=== PATIENT | female | born 1950 | race Caucasian/White ===

== ENCOUNTER → 2018-04-25 10:24 | Outpatient (CLI) | payer OTHER, SELFPAY ==
--- NOTE | 2018-04-25 | DI.MG.S_ITS ---
BILATERAL DIGITAL SCREENING MAMMOGRAM 3D/2D WITH CAD: 04/25/2018 CLINICAL: Routine screening. Comparison is made to exams dated: 06/07/2016 mammogram, 06/03/2015 mammogram, and 06/02/2014 mammogram - [facility]. There are scattered fibroglandular elements in both breasts. Current study was also evaluated with a Computer Aided Detection (CAD) system. There is an asymmetry in the left breast sub-areolar depth medial region seen on the craniocaudal view only. No other significant masses, calcifications, or other findings are seen in either breast. IMPRESSION: INCOMPLETE: NEEDS ADDITIONAL IMAGING EVALUATION The asymmetry in the left breast is indeterminate. Additional views with possible ultrasound are recommended. This exam was interpreted at Station ID: [id number]. NOTE: For mammograms, a report in lay terms will be sent to the patient. Approximately 15% of breast malignancies will not be visualized mammographically. In the management of a palpable breast mass, a negative mammogram must not discourage biopsy of a clinically suspicious lesion. Electronically Signed By: Tony sterling/eve:04/25/2018 13:44:50 letter sent: Additional Imaging Needed ACR BI-RADS Category 0: Incomplete [id number]
== END ==
PROVIDERS: Family Provider Internal Medicine; PCP Family Medicine; Visit Provider Family Medicine
DX: Z12.31 Encounter for screening mammogram for malignant neoplasm of breast (principal); R92.8 Other abnormal and inconclusive findings on diagnostic imaging of breast
CPT/HCPCS: 77063; 77067

== ENCOUNTER → 2018-05-09 13:38 | Outpatient (CLI) | payer OTHER, SELFPAY ==
--- NOTE | 2018-05-09 13:45 | DI.MG.S_ITS ---
UNILATERAL LEFT DIGITAL DIAGNOSTIC MAMMOGRAM 3D/2D WITH ADDITIONAL VIEWS: 05/09/2018 CLINICAL: Additional evaluation requested from prior study. Comparison is made to exams dated: 04/25/2018 mammogram, 06/07/2016 mammogram, and 06/03/2015 mammogram - [facility]. There are scattered fibroglandular elements in the left breast. Prior mammographic finding is no longer seen in the left breast. No significant masses, calcifications, or other findings are seen in the breast. IMPRESSION: NEGATIVE There is no mammographic evidence of malignancy. A 1 year screening mammogram is recommended. This exam was interpreted at Station ID: [id number]. NOTE: For mammograms, a report in lay terms will be sent to the patient. Approximately 15% of breast malignancies will not be visualized mammographically. In the management of a palpable breast mass, a negative mammogram must not discourage biopsy of a clinically suspicious lesion. Electronically Signed By: Tony sterling/eve:05/09/2018 16:31:15 letter sent: Normal Exam ACR BI-RADS Category 1: Negative [id number]
== END ==
PROVIDERS: PCP Family Medicine; Visit Provider Family Medicine
DX: R92.8 Other abnormal and inconclusive findings on diagnostic imaging of breast (principal)
CPT/HCPCS: 77065; G0279

== ENCOUNTER 2018-08-22 16:00 | Outpatient (RCR) | payer OTHER, SELFPAY ==
--- NOTE | 2018-05-12 13:02 | PT.OIE ---
Current Diagnoses Muscle weakness (generalized) (05/11/18) Lateral epicondylitis, left elbow (05/11/18) Pain in left forearm (05/11/18) Abnormal posture (05/11/18) Past Surgical History History of tonsillectomy Status post hysterectomy Provider Visit Care Team Role Provider Type Sweta Torrez DO Attending Provider Physician Primary Care Provider Specialty: [facility] Address: [address] [place] [address], [facility] Email: [email or web address] Physical Therapy Initial Evaluation PT-OP-A Visit Information Start: 05/11/18 17:08 Freq: Status: Active Protocol: Document 05/11/18 14:30 RCC (Rec: 05/12/18 12:36 RCC [email or web address]) Out-Patient Physical Therapy Visit Information Visit Information Visit Type Initial Evaluation Visit Note At end of session, pt also presented a referral from SHILA Moore for L foot pain and R knee pain which was unable to be assessed this visit due to time constraints. Visit Start Time 13:45 Visit Stop Time 14:30 Total Visit Minutes 45 Visit Number 1/15 (G-codes due @ 10th visit ) Number of BRANCH SERVICE REPRESENTATIVE Visits 0 Evaluation Information Evaluation Date 05/11/18 PT-OP-B Current Condition Start: 05/11/18 17:08 Freq: Status: Active Protocol: Document 05/11/18 14:30 RCC (Rec: 05/12/18 12:36 RCC [email or web address]) Current Condition History of Current Condition Onset Date 06/2017 Current Complaints L lateral elbow/forearm pain History of Current Condition Pt is a 67 y/o female presenting to physical therapy with a c/o L lateral elbow and forearm pain. Initial injury noticed after moving into a new home in the [facility] in June of 2017. Pt reports pain has worsened since then, although has reached a point where she thinks it may start getting better. She also c/o bilateral neck and upper back pain, L>R . Aggravating factors include: lifting (i.e. likes to garden and difficulty lifting her planters). Pt has not found any relieving activities or positions besides not using it. She feels weakness in the L arm and hand. Occasional tingling on the R hand with doing her hair, but no c/o numbness tingling on the affected L hand side. Pt also c/o L anteromedial foot pain which initially was swollen 2 mo ago but now swelling is down and feeling a little better. She also has a R knee that is painful and hurts going down stairs first thing in the morning, but then gets better. No pain going up stairs. No imaging for any of these injuries has been done. She is R hand dominant. Treatment Goals Patient/Caregiver Goals Decrease pain, improve lifting tolerance. Prior Functional Status Baseline Function- ADL's Independent Baseline Function- Mobility Independent Baseline Function- Gait indep. community ambulator Baseline Function- Recreation/Hobbies Indep. gardening and lifting without pain in L forearm/ elbow. Current Functional Impairments (Reported) Functional Limitations- Recreation/ Unable to lift planters and Hobbies work in garden d/t pain. Personal Factors Other Personal Factors That May Effect h/o of bulging disc in lumbar Therapy/Recovery spine per pt- body mechanics with lifting when L arm able to do so. ROMAN and neck pain limiting her physical activity levels. PT-OP-C Subjective Start: 05/11/18 17:08 Freq: Status: Active Protocol: Document 05/11/18 14:30 RCC (Rec: 05/12/18 12:36 [facility] [email or web address]) OP-PT Subjective Patient Comments Patient Comments Pt notes that the L forearm pain is the most function limiting factor as of now vs. R knee and L foot pain. Patient Questionnaires Quick Dash- Upper Extremity Quick Dash UE Score 40.91 Quick Dash UE Impairment 40 to 59% Impaired (Score 40- 59) OP-PT Pain Assessment Pain Assessment Grid Paper Pain Assessment Grid Completed Yes Location Bilateral Neck Intensity 3 Scale Used Numeric (1 - 10) Description Aching Tightness Frequency Frequent Left Elbow Intensity 4 Scale Used Numeric (1 - 10) Description Aching Stabbing Frequency Intermittent Radiating Location down forearm L Pain Aggravating Factors Activity Lifting Pain Alleviating Factors Inactivity PT-OP-F Manual Assessment Start: 05/11/18 17:08 Freq: Status: Active Protocol: Document 05/11/18 14:30 RCC (Rec: 05/12/18 12:44 RCC [email or web address]) Manual Assessments Soft Tissue Assessment Soft Tissue Mobility Assessment Tenderness to palpation: L extensor carpi radialis brevis , common forearm extensor proximal attachment, bilateral levator scapula and upper trapezius. PT-OP-H Neuro Start: 05/11/18 17:08 Freq: Status: Active Protocol: Document 05/11/18 14:30 RCC (Rec: 05/12/18 12:44 RCC [email or web address]) Sensation Evaluation Gross Sensation Gross Sensation WNL Comments Summary Comments possible R median nerve involvment with occasional R digits 1-3 numbness/tingling. Deep Tendon Reflex & Clonus Assessment Deep Tendon Reflex Brachioradialis Deep Tendon Reflex 2+ Normal Bilateral Tricep Deep Tendon Reflex 2+ Normal Bilateral Bicep Deep Tendon Reflex 2+ Normal PT-OP-J Posture/Palpation/Skin Start: 05/11/18 17:08 Freq: Status: Active Protocol: Document 05/11/18 14:30 RCC (Rec: 05/12/18 12:44 RCC [email or web address]) Posture Evaluation Position Sitting Head/C-Spine Posture Forward Head T-Spine Posture Increased Kyphosis Comments Posture Comments elevated shoulders bilaterally . PT-OP-K Range of Motion Start: 05/11/18 17:08 Freq: Status: Active Protocol: Document 05/11/18 14:30 RCC (Rec: 05/12/18 12:45 RCC [email or web address]) Cervical Spine Range of Motion Cervical Spine Active Degrees Testing Position Sitting Flexion 48 Extension 35 Rotation Left 50 Rotation Right 70 Lateral Flexion Left 24 Lateral Flexion Right 28 ROM Limitations Soft Tissue Tightness Comments tightness with SB L on the R cervical spine. PT-OP-L Special Tests Start: 05/11/18 17:08 Freq: Status: Active Protocol: Document 05/11/18 14:30 RCC (Rec: 05/12/18 12:44 RCC [email or web address]) Special Tests Cervical Spine Special Tests Spurling's Test Test Results negative bilaterally Elbow Special Tests Lateral Epicondylitis Extended Test Results positive L PT-OP-M Strength Start: 05/11/18 17:08 Freq: Status: Active Protocol: Document 05/11/18 14:30 RCC (Rec: 05/12/18 12:44 RCC [email or web address]) Shoulder Strength Shoulder Manual Muscle Testing Right Flexion 5 Normal Abduction (C5) 5 Normal External Rotation 5 Normal Internal Rotation 5 Normal Left Flexion 4 Good Abduction (C5) 4 Good External Rotation 4+ Good+ Internal Rotation 4+ Good+ Elbow/Forearm Strength Elbow and Forearm Manual Muscle Testing Right Flexion (C6) 5 Normal Extension (C7) 5 Normal Left Flexion (C6) 4+ Good+ Extension (C7) 4+ Good+ Hand Slasher Tender/Pinch Strength Hand Dominance Hand Dominance Right Hand Strength Left Comments Slasher Tender: elbow flex 90 deg & arm @ side- L 43 lbs, R 52 lbs Slasher Tender: elbow extended & shoulder @ 90 deg- L 18 lbs, R 53 lbs PT-OP-Q Treatments Start: 05/11/18 17:08 Freq: Status: Active Protocol: Document 05/11/18 14:30 RCC (Rec: 05/12/18 13:00 [facility] [email or web address]) Therapeutic Exercises Sitting Exercises 2 Sitting Exercise Name wrist extensor stretch Side left Reps/Minutes 2 x 30 sec hold 1 Sitting Exercise Name wrist flex/ext AROM Side left Reps/Minutes 1 x 10 Manual Therapy Treatment Soft Tissue Mobilization 2 Body Location Levator scapula Mobilization Type Sustained Pressure Intensity/Depth Superficial Body Position Sitting Comments bilateral 1 Body Location ECRB, wrist extensors, common extensor proximal attachment Mobilization Type Strumming Intensity/Depth Superficial Body Position Sitting Comments Left UE PT-OP-T Assessment and Plan Start: 05/11/18 17:08 Freq: Status: Active Protocol: Document 05/11/18 14:30 [facility] (Rec: 05/12/18 13:00 [facility] [email or web address]) Physical Therapy Assessment Rehab Potential Rehabilitation Potential Good Evaluation Complexity Number of Personal Factors/Comorbidities 3 or More Number of Body Systems Impaired 4 or More Clinical Presentation at Evaluation Evolving Impairments Impairments Activity Tolerance Functional Activities Pain Posture ROM Soft Tissue Mobility Strength Goals Four Impairment Unable to garden, lift planters without increased pain and weakness Short Term Goal (STG) Pt able to lift small planters with 2/10 or less pain in L elbow. STG Duration 4 weeks Mcfp Goal (LTG) Pt able to lift planters to her prior level of ability and 1/10 pain or less in L elbow LTG Duration 8 weeks Three Impairment QuickDASH disability score Short Term Goal (STG) <40 disability score on QuickDASH STG Duration 4 weeks Accounts Payable Coordinator Goal (LTG) 25 or less on disability score on QuickDASH LTG Duration 8 weeks Two Impairment LUE weakness Short Term Goal (STG) 4+/5 or greater L shoulder flexion, abduction, IR, ER MMT . STG Duration 4 weeks Accounts Payable Coordinator Goal (LTG) 5/5 L shoulder and elbow MMT. LTG Duration 8 weeks One Impairment Pain- L elbow/forearm 4/10, neck 3/10 Short Term Goal (STG) Pain in L forearm/elbow t0 2/ 10 and bilateral neck to 2/10 STG Duration 4 weeks Accounts Payable Coordinator Goal (LTG) Pain in L forearm/elbow and bilateral neck to 1/10 or less LTG Duration 8 weeks Assessment Summary Assessment Pt presents with (+) signs and symptoms consistent with L lateral epicondylosis. Pt has poor posture with increased kyphosis and elevated shoulder and forward head bilaterally, likely causing her neck pain, but pain appears to not be referred to the L lateral elbow at this time from the cervical spine. Pt with L early childhood associate weakness compared to the R, with most significance when elbow is extended and shoulder is flexed to 90 degrees, likely due to pain from attempting to hold the dynamometer. Pt would greatly benefit from skilled physical therapy intervention to improve LUE strength, return to prior level of lifting and gardening, pain, and improve body mechanics and posture. Pt's L foot and R knee not assessed at this time , as referral is for L forearm pain only, time constraints, and the order for L foot pain and R knee pain from different practitioner. Physical Therapy Plan Frequency and Duration Frequency of Treatment 2x/Week Duration of Treatment 8 weeks Plan of Care Start Date 05/11/18 Plan of Care End Date 07/06/18 Therapeutic Interventions Therapeutic Interventions Aquatic Therapy Home Exercise Program Joint Mobilizations Manual Therapy Neuromuscular Re-education Self-Care/Home Management Sensory Integration Soft Tissue Mobilization Taping Therapeutic Activities Therapeutic Exercises Modalities Cold Pack/Ice Massage Electric Stimulation Hot Packs Iontophoresis Ultrasound Other Therapeutic Interventions Iontophoresis- dexamethasone 4 mg/mL Next Visit Focus/Plan Next Note Type Treatment Note Next Visit Plan Lateral glide of forearm with pt performing early childhood associate training while glide is being held ( grade III mobilization, sustained), ultrasound L lateral forearm, 1 lb resistance with wrist extension, STR lateral L forearm, continue stretching program. Please Sign and Return: I have reviewed this Plan of Care and certify that the skilled therapy services above are required to meet the patient?s needs. Physician Signature Date Printed Name and Credentials Clinical Instructor Signature Printed Name and Credentials
--- NOTE | 2018-05-15 18:02 | PT.OTN ---
Current Diagnoses Lateral epicondylitis, left elbow (05/15/18) Physical Therapy Treatment Note PT-OP-A Visit Information Start: 05/11/18 17:08 Freq: Status: Active Protocol: Document 05/15/18 16:45 GGD (Rec: 05/15/18 18:02 [facility] [email or web address]) Out-Patient Physical Therapy Visit Information Visit Information Visit Type Treatment Note Visit Start Time 16:45 Visit Stop Time 17:25 Total Visit Minutes 40 Visit Number 2/ (G-codes due @ 10th visit ) Number of AWNINGS MECHANIC Visits 1 Evaluation Information Evaluation Date 05/11/18 PT-OP-B Current Condition Start: 05/11/18 17:08 Freq: Status: Active Protocol: Document 05/11/18 14:30 RCC (Rec: 05/12/18 12:36 RCC [email or web address]) Current Condition History of Current Condition Onset Date 06/2017 Current Complaints L lateral elbow/forearm pain History of Current Condition Pt is a 67 y/o female presenting to physical therapy with a c/o L lateral elbow and forearm pain. Initial injury noticed after moving into a new home in the [facility] in June of 2017. Pt reports pain has worsened since then, although has reached a point where she thinks it may start getting better. She also c/o bilateral neck and upper back pain, L>R . Aggravating factors include: lifting (i.e. likes to garden and difficulty lifting her planters). Pt has not found any relieving activities or positions besides not using it. She feels weakness in the L arm and hand. Occasional tingling on the R hand with doing her hair, but no c/o numbness tingling on the affected L hand side. Pt also c/o L anteromedial foot pain which initially was swollen 2 mo ago but now swelling is down and feeling a little better. She also has a R knee that is painful and hurts going down stairs first thing in the morning, but then gets better. No pain going up stairs. No imaging for any of these injuries has been done. She is R hand dominant. Treatment Goals Patient/Caregiver Goals Decrease pain, improve lifting tolerance. Prior Functional Status Baseline Function- ADL's Independent Baseline Function- Mobility Independent Baseline Function- Gait indep. community ambulator Baseline Function- Recreation/Hobbies Indep. gardening and lifting without pain in L forearm/ elbow. Current Functional Impairments (Reported) Functional Limitations- Recreation/ Unable to lift planters and Hobbies work in garden d/t pain. Personal Factors Other Personal Factors That May Effect h/o of bulging disc in lumbar Therapy/Recovery spine per pt- body mechanics with lifting when L arm able to do so. ROMAN and neck pain limiting her physical activity levels. PT-OP-C Subjective Start: 05/11/18 17:08 Freq: Status: Active Protocol: Document 05/15/18 16:45 GGD (Rec: 05/15/18 18:02 [facility]GD [email or web address]) OP-PT Subjective Patient Comments Patient Comments Pt states she felt better after last visit PT-OP-F Manual Assessment Start: 05/11/18 17:08 Freq: Status: Active Protocol: Document 05/11/18 14:30 RCC (Rec: 05/12/18 12:44 RCC [email or web address]) Manual Assessments Soft Tissue Assessment Soft Tissue Mobility Assessment Tenderness to palpation: L extensor carpi radialis brevis , common forearm extensor proximal attachment, bilateral levator scapula and upper trapezius. PT-OP-H Neuro Start: 05/11/18 17:08 Freq: Status: Active Protocol: Document 05/11/18 14:30 RCC (Rec: 05/12/18 12:44 RCC [email or web address]) Sensation Evaluation Gross Sensation Gross Sensation WNL Comments Summary Comments possible R median nerve involvment with occasional R digits 1-3 numbness/tingling. Deep Tendon Reflex & Clonus Assessment Deep Tendon Reflex Brachioradialis Deep Tendon Reflex 2+ Normal Bilateral Tricep Deep Tendon Reflex 2+ Normal Bilateral Bicep Deep Tendon Reflex 2+ Normal PT-OP-J Posture/Palpation/Skin Start: 05/11/18 17:08 Freq: Status: Active Protocol: Document 05/11/18 14:30 RCC (Rec: 05/12/18 12:44 RCC [email or web address]) Posture Evaluation Position Sitting Head/C-Spine Posture Forward Head T-Spine Posture Increased Kyphosis Comments Posture Comments elevated shoulders bilaterally . PT-OP-K Range of Motion Start: 05/11/18 17:08 Freq: Status: Active Protocol: Document 05/11/18 14:30 RCC (Rec: 05/12/18 12:45 RCC [email or web address]) Cervical Spine Range of Motion Cervical Spine Active Degrees Testing Position Sitting Flexion 48 Extension 35 Rotation Left 50 Rotation Right 70 Lateral Flexion Left 24 Lateral Flexion Right 28 ROM Limitations Soft Tissue Tightness Comments tightness with SB L on the R cervical spine. PT-OP-L Special Tests Start: 05/11/18 17:08 Freq: Status: Active Protocol: Document 05/11/18 14:30 RCC (Rec: 05/12/18 12:44 RCC [email or web address]) Special Tests Cervical Spine Special Tests Spurling's Test Test Results negative bilaterally Elbow Special Tests Lateral Epicondylitis Extended Test Results positive L PT-OP-M Strength Start: 05/11/18 17:08 Freq: Status: Active Protocol: Document 05/11/18 14:30 RCC (Rec: 05/12/18 12:44 RCC [email or web address]) Shoulder Strength Shoulder Manual Muscle Testing Right Flexion 5 Normal Abduction (C5) 5 Normal External Rotation 5 Normal Internal Rotation 5 Normal Left Flexion 4 Good Abduction (C5) 4 Good External Rotation 4+ Good+ Internal Rotation 4+ Good+ Elbow/Forearm Strength Elbow and Forearm Manual Muscle Testing Right Flexion (C6) 5 Normal Extension (C7) 5 Normal Left Flexion (C6) 4+ Good+ Extension (C7) 4+ Good+ Hand Gluer/Pinch Strength Hand Dominance Hand Dominance Right Hand Strength Left Comments Gluer: elbow flex 90 deg & arm @ side- L 43 lbs, R 52 lbs Gluer: elbow extended & shoulder @ 90 deg- L 18 lbs, R 53 lbs PT-OP-Q Treatments Start: 05/11/18 17:08 Freq: Status: Active Protocol: Document 05/15/18 16:45 GGD (Rec: 05/15/18 18:02 GGD [email or web address]) Therapeutic Exercises Sitting Exercises 3 Sitting Exercise Name wrist extension Side left Resistance 1# Reps/Minutes 10 2 Sitting Exercise Name wrist extensor stretch Side left Reps/Minutes 2 x 30 sec hold 1 Sitting Exercise Name wrist flex/ext AROM Side left Reps/Minutes 1 x 10 Manual Therapy Treatment Soft Tissue Mobilization 1 Body Location ECRB, wrist extensors, common extensor proximal attachment Mobilization Type Strumming Intensity/Depth Superficial Body Position Sitting Comments Left UE Joint Mobilizations 1 Joint Lateral glide of forearm with manager technical training training. Grade II Body Position Sitting PT-OP-R Modalities Start: 05/11/18 17:08 Freq: Status: Active Protocol: Document 05/15/18 16:45 GGD (Rec: 05/15/18 18:02 [facility]GD [email or web address]) Ultrasound Therapy Treatment left lateral forearm Treatment Duration (minutes) 8 Patient Position Sitting Coupling Medium Ultrasound Gel Applicator Size (cm2) 5 Frequency Setting (mHz) 3 Mode Setting Pulsed Duty Cycle 50% Intensity Setting (w/cm2) 1.0 PT-OP-T Assessment and Plan Start: 05/11/18 17:08 Freq: Status: Active Protocol: Document 05/15/18 16:45 GGD (Rec: 05/15/18 18:02 GGD [email or web address]) Physical Therapy Assessment Assessment Summary Assessment Pt had decrease pain with treatment and improved tolerance to exercise. Physical Therapy Plan Frequency and Duration Frequency of Treatment 2x/Week Duration of Treatment 8 weeks Plan of Care Start Date 05/11/18 Plan of Care End Date 07/06/18 Next Visit Focus/Plan Next Note Type Treatment Note Next Visit Plan progress strengthening and HEP .
--- NOTE | 2018-07-20 16:40 | PT.OTN ---
Current Diagnoses Lateral epicondylitis, left elbow (07/20/18) Physical Therapy Treatment Note PT-OP-A Visit Information Start: 05/11/18 17:08 Freq: Status: Active Protocol: Document 07/20/18 16:40 RCC (Rec: 07/22/18 17:33 RCC [email or web address]) Out-Patient Physical Therapy Visit Information Visit Information Visit Type Treatment Note Visit Start Time 16:00 Visit Stop Time 16:40 Total Visit Minutes 40 Visit Number 3/15 (G-codes due @ 13th visit ) Number of CONTROL VALVE TECHNICIAN Visits 0 Evaluation Information Evaluation Date 05/11/18 PT-OP-B Current Condition Start: 05/11/18 17:08 Freq: Status: Active Protocol: Document 05/11/18 14:30 RCC (Rec: 05/12/18 12:36 RCC [email or web address]) Current Condition History of Current Condition Onset Date 06/2017 Current Complaints L lateral elbow/forearm pain History of Current Condition Pt is a 67 y/o female presenting to physical therapy with a c/o L lateral elbow and forearm pain. Initial injury noticed after moving into a new home in the [facility] in June of 2017. Pt reports pain has worsened since then, although has reached a point where she thinks it may start getting better. She also c/o bilateral neck and upper back pain, L>R . Aggravating factors include: lifting (i.e. likes to garden and difficulty lifting her planters). Pt has not found any relieving activities or positions besides not using it. She feels weakness in the L arm and hand. Occasional tingling on the R hand with doing her hair, but no c/o numbness tingling on the affected L hand side. Pt also c/o L anteromedial foot pain which initially was swollen 2 mo ago but now swelling is down and feeling a little better. She also has a R knee that is painful and hurts going down stairs first thing in the morning, but then gets better. No pain going up stairs. No imaging for any of these injuries has been done. She is R hand dominant. Treatment Goals Patient/Caregiver Goals Decrease pain, improve lifting tolerance. Prior Functional Status Baseline Function- ADL's Independent Baseline Function- Mobility Independent Baseline Function- Gait indep. community ambulator Baseline Function- Recreation/Hobbies Indep. gardening and lifting without pain in L forearm/ elbow. Current Functional Impairments (Reported) Functional Limitations- Recreation/ Unable to lift planters and Hobbies work in garden d/t pain. Personal Factors Other Personal Factors That May Effect h/o of bulging disc in lumbar Therapy/Recovery spine per pt- body mechanics with lifting when L arm able to do so. ROMAN and neck pain limiting her physical activity levels. PT-OP-C Subjective Start: 05/11/18 17:08 Freq: Status: Active Protocol: Document 07/20/18 16:40 RCC (Rec: 07/22/18 17:33 RCC [email or web address]) OP-PT Subjective Patient Comments Patient Comments Pt notes that the manual therapy and ultrasound are helping with decreasing pain, but still having difficulty with lifting, carrying, griping objects in the L hand. She is doing the stretching and ROM activities for her HEP . PT-OP-F Manual Assessment Start: 05/11/18 17:08 Freq: Status: Active Protocol: Document 07/20/18 16:40 RCC (Rec: 07/22/18 17:33 RCC [email or web address]) Manual Assessments Soft Tissue Assessment Soft Tissue Mobility Assessment Tenderness to palpation: L extensor carpi radialis brevis , common forearm extensor proximal attachment. PT-OP-H Neuro Start: 05/11/18 17:08 Freq: Status: Active Protocol: Document 05/11/18 14:30 RCC (Rec: 05/12/18 12:44 RCC [email or web address]) Sensation Evaluation Gross Sensation Gross Sensation WNL Comments Summary Comments possible R median nerve involvment with occasional R digits 1-3 numbness/tingling. Deep Tendon Reflex & Clonus Assessment Deep Tendon Reflex Brachioradialis Deep Tendon Reflex 2+ Normal Bilateral Tricep Deep Tendon Reflex 2+ Normal Bilateral Bicep Deep Tendon Reflex 2+ Normal PT-OP-J Posture/Palpation/Skin Start: 05/11/18 17:08 Freq: Status: Active Protocol: Document 05/11/18 14:30 RCC (Rec: 05/12/18 12:44 RCC [email or web address]) Posture Evaluation Position Sitting Head/C-Spine Posture Forward Head T-Spine Posture Increased Kyphosis Comments Posture Comments elevated shoulders bilaterally . PT-OP-K Range of Motion Start: 05/11/18 17:08 Freq: Status: Active Protocol: Document 05/11/18 14:30 RCC (Rec: 05/12/18 12:45 RCC [email or web address]) Cervical Spine Range of Motion Cervical Spine Active Degrees Testing Position Sitting Flexion 48 Extension 35 Rotation Left 50 Rotation Right 70 Lateral Flexion Left 24 Lateral Flexion Right 28 ROM Limitations Soft Tissue Tightness Comments tightness with SB L on the R cervical spine. PT-OP-L Special Tests Start: 05/11/18 17:08 Freq: Status: Active Protocol: Document 07/20/18 16:40 RCC (Rec: 07/22/18 17:33 RCC [email or web address]) Special Tests Elbow Special Tests Lateral Epicondylitis Extended Test Results positive L PT-OP-M Strength Start: 05/11/18 17:08 Freq: Status: Active Protocol: Document 07/20/18 16:40 RCC (Rec: 07/22/18 17:33 RCC [email or web address]) Elbow/Forearm Strength Elbow and Forearm Manual Muscle Testing Left Flexion (C6) 4+ Good+ Extension (C7) 4+ Good+ PT-OP-Q Treatments Start: 05/11/18 17:08 Freq: Status: Active Protocol: Document 07/20/18 16:40 RCC (Rec: 07/22/18 17:33 RCC [email or web address]) Therapeutic Exercises Sitting Exercises 4 Sitting Exercise Name pronation/supination, wrist flexion/extension Side bilateral Equipment Used Red Theraband flexbar Reps/Minutes 10 each 2 Sitting Exercise Name wrist extensor stretch Side left Reps/Minutes 2 x 30 sec hold 1 Sitting Exercise Name wrist flex/ext AROM Side left Reps/Minutes 1 x 10 Manual Therapy Treatment Soft Tissue Mobilization 1 Body Location ECRB, wrist extensors, common extensor proximal attachment Mobilization Type Strumming Intensity/Depth Superficial Body Position Sitting Comments Left UE Joint Mobilizations 1 Joint Lateral glide of forearm with national park tour guide training. Grade IV Body Position Sitting Comments 10 reps Other Other Manual Treatments self STR with tennis ball on forearm musculature. PT-OP-R Modalities Start: 05/11/18 17:08 Freq: Status: Active Protocol: Document 07/20/18 16:40 RCC (Rec: 07/22/18 17:33 RCC [email or web address]) Ultrasound Therapy Treatment left lateral forearm Treatment Duration (minutes) 8 Patient Position Sitting Coupling Medium Ultrasound Gel Applicator Size (cm2) 5 Frequency Setting (mHz) 3 Mode Setting Pulsed Duty Cycle 50% Intensity Setting (w/cm2) 1.0 PT-OP-T Assessment and Plan Start: 05/11/18 17:08 Freq: Status: Active Protocol: Document 07/20/18 16:40 RCC (Rec: 07/22/18 17:33 RCC [email or web address]) Physical Therapy Assessment Goals Four Impairment Unable to garden, lift planters without increased pain and weakness Short Term Goal (STG) Pt able to lift small planters with 2/10 or less pain in L elbow. STG Duration 4 weeks Penitentiary Goal (LTG) Pt able to lift planters to her prior level of ability and 1/10 pain or less in L elbow LTG Duration 8 weeks Three Impairment QuickDASH disability score Short Term Goal (STG) <40 disability score on QuickDASH STG Duration 4 weeks Watermelon Inspector Goal (LTG) 25 or less on disability score on QuickDASH LTG Duration 8 weeks Two Impairment LUE weakness Short Term Goal (STG) 4+/5 or greater L shoulder flexion, abduction, IR, ER MMT . STG Duration 4 weeks Watermelon Inspector Goal (LTG) 5/5 L shoulder and elbow MMT. LTG Duration 8 weeks One Impairment Pain- L elbow/forearm 4/10, neck 3/10 Short Term Goal (STG) Pain in L forearm/elbow t0 2/ 10 and bilateral neck to 2/10 STG Duration 4 weeks Watermelon Inspector Goal (LTG) Pain in L forearm/elbow and bilateral neck to 1/10 or less LTG Duration 8 weeks Progress Towards Goals Progress Towards Goals Slow Progress due to Noncompliance Progress Comments pt has only attended initial evaluation and 1 follow up treatment in April 2018, and no other visit since. Assessment Summary Assessment This is the pt's 3rd physical therapy visit, after attending the initial evaluation and one follow up treatment prior to this date. Pt still with (+) lateral epicondylitis testing and impaired L elbow weakness, as her HEP was not able to be progress farther due to not attending physical therapy over the past 2 months. Pt appears now to be motivated to participate, and has further appointments scheduled on a more consistent basis. 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 Physical Therapy Plan Frequency and Duration Frequency of Treatment 2x/Week Duration of Treatment 8 weeks Plan of Care Start Date 07/20/18 Plan of Care End Date 09/14/18 Therapeutic Interventions Therapeutic Interventions Aquatic Therapy Home Exercise Program Joint Mobilizations Manual Therapy Neuromuscular Re-education Self-Care/Home Management Sensory Integration Soft Tissue Mobilization Taping Therapeutic Activities Therapeutic Exercises Modalities Cold Pack/Ice Massage Electric Stimulation Hot Packs Iontophoresis Ultrasound Other Therapeutic Interventions Iontophoresis- dexamethasone 4 mg/mL Next Visit Focus/Plan Next Note Type Treatment Note Next Visit Plan ultrasound L lateral forearm, STR lateral L forearm, wall push-ups.
--- NOTE | 2018-07-20 16:40 | PT.OPPOC ---
Current Diagnoses Lateral epicondylitis, left elbow (07/20/18) Provider Visit Care Team Role Provider Type Sweta Torrez DO Attending Provider Physician Primary Care Provider Specialty: Family Practice Address: [address] [place] [address], [id number] Email: [email or web address] Plan Of Care PT-OP-T Assessment and Plan Start: 05/11/18 17:08 Freq: Status: Active Protocol: Document 07/20/18 16:40 RCC (Rec: 07/22/18 17:33 RCC [email or web address]) Physical Therapy Assessment Goals Four Impairment Unable to garden, lift planters without increased pain and weakness Short Term Goal (STG) Pt able to lift small planters with 2/10 or less pain in L elbow. STG Duration 4 weeks Network Support Goal (LTG) Pt able to lift planters to her prior level of ability and 1/10 pain or less in L elbow LTG Duration 8 weeks Three Impairment QuickDASH disability score Short Term Goal (STG) <40 disability score on QuickDASH STG Duration 4 weeks Network Support Goal (LTG) 25 or less on disability score on QuickDASH LTG Duration 8 weeks Two Impairment LUE weakness Short Term Goal (STG) 4+/5 or greater L shoulder flexion, abduction, IR, ER MMT . STG Duration 4 weeks Network Support Goal (LTG) 5/5 L shoulder and elbow MMT. LTG Duration 8 weeks One Impairment Pain- L elbow/forearm 4/10, neck 3/10 Short Term Goal (STG) Pain in L forearm/elbow t0 2/ 10 and bilateral neck to 2/10 STG Duration 4 weeks Network Support Goal (LTG) Pain in L forearm/elbow and bilateral neck to 1/10 or less LTG Duration 8 weeks Progress Towards Goals Progress Towards Goals Slow Progress due to Noncompliance Progress Comments pt has only attended initial evaluation and 1 follow up treatment in April 2018, and no other visit since. Assessment Summary Assessment This is the pt's 3rd physical therapy visit, after attending the initial evaluation and one follow up treatment prior to this date. Pt still with (+) lateral epicondylitis testing and impaired L elbow weakness, as her HEP was not able to be progress farther due to not attending physical therapy over the past 2 months. Pt appears now to be motivated to participate, and has further appointments scheduled on a more consistent basis. 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 Physical Therapy Plan Frequency and Duration Frequency of Treatment 2x/Week Duration of Treatment 8 weeks Plan of Care Start Date 07/20/18 Plan of Care End Date 09/14/18 Therapeutic Interventions Therapeutic Interventions Aquatic Therapy Home Exercise Program Joint Mobilizations Manual Therapy Neuromuscular Re-education Self-Care/Home Management Sensory Integration Soft Tissue Mobilization Taping Therapeutic Activities Therapeutic Exercises Modalities Cold Pack/Ice Massage Electric Stimulation Hot Packs Iontophoresis Ultrasound Other Therapeutic Interventions Iontophoresis- dexamethasone 4 mg/mL Next Visit Focus/Plan Next Note Type Treatment Note Next Visit Plan ultrasound L lateral forearm, STR lateral L forearm, wall push-ups. Plan of Care Dates Plan of Care Start Date 07/20/18 Plan of Care End Date 09/14/18 Please Sign and Return: I have reviewed this Plan of Care and certify that the skilled therapy services above are required to meet the patient?s needs. Physician Signature Date Printed Name and Credentials Clinical Instructor Signature Printed Name and Credentials
--- NOTE | 2018-08-01 17:30 | PT.OTN ---
Current Diagnoses Lateral epicondylitis, left elbow (08/01/18) Physical Therapy Treatment Note PT-OP-A Visit Information Start: 05/11/18 17:08 Freq: Status: Active Protocol: Document 08/01/18 17:30 RCC (Rec: 08/01/18 17:38 RCC [email or web address]) Out-Patient Physical Therapy Visit Information Visit Information Visit Type Treatment Note Visit Start Time 16:50 Visit Stop Time 17:30 Total Visit Minutes 40 Visit Number 4/15 (G-codes due @ 14th visit ) Number of TELECOMMUNICATION TOWER TECHNICIAN Visits 0 Evaluation Information Evaluation Date 05/11/18 PT-OP-B Current Condition Start: 05/11/18 17:08 Freq: Status: Active Protocol: Document 05/11/18 14:30 RCC (Rec: 05/12/18 12:36 RCC [email or web address]) Current Condition History of Current Condition Onset Date 06/2017 Current Complaints L lateral elbow/forearm pain History of Current Condition Pt is a 67 y/o female presenting to physical therapy with a c/o L lateral elbow and forearm pain. Initial injury noticed after moving into a new home in the [facility] in June of 2017. Pt reports pain has worsened since then, although has reached a point where she thinks it may start getting better. She also c/o bilateral neck and upper back pain, L>R . Aggravating factors include: lifting (i.e. likes to garden and difficulty lifting her planters). Pt has not found any relieving activities or positions besides not using it. She feels weakness in the L arm and hand. Occasional tingling on the R hand with doing her hair, but no c/o numbness tingling on the affected L hand side. Pt also c/o L anteromedial foot pain which initially was swollen 2 mo ago but now swelling is down and feeling a little better. She also has a R knee that is painful and hurts going down stairs first thing in the morning, but then gets better. No pain going up stairs. No imaging for any of these injuries has been done. She is R hand dominant. Treatment Goals Patient/Caregiver Goals Decrease pain, improve lifting tolerance. Prior Functional Status Baseline Function- ADL's Independent Baseline Function- Mobility Independent Baseline Function- Gait indep. community ambulator Baseline Function- Recreation/Hobbies Indep. gardening and lifting without pain in L forearm/ elbow. Current Functional Impairments (Reported) Functional Limitations- Recreation/ Unable to lift planters and Hobbies work in garden d/t pain. Personal Factors Other Personal Factors That May Effect h/o of bulging disc in lumbar Therapy/Recovery spine per pt- body mechanics with lifting when L arm able to do so. ROMAN and neck pain limiting her physical activity levels. PT-OP-C Subjective Start: 05/11/18 17:08 Freq: Status: Active Protocol: Document 08/01/18 17:30 RCC (Rec: 08/01/18 17:38 RCC [email or web address]) OP-PT Subjective Patient Comments Patient Comments Pt notes that she is fine with working tasks in front of her , but still painful holding or lifting to the side of the L arm. PT-OP-F Manual Assessment Start: 05/11/18 17:08 Freq: Status: Active Protocol: Document 07/20/18 16:40 RCC (Rec: 07/22/18 17:33 RCC [email or web address]) Manual Assessments Soft Tissue Assessment Soft Tissue Mobility Assessment Tenderness to palpation: L extensor carpi radialis brevis , common forearm extensor proximal attachment. PT-OP-H Neuro Start: 05/11/18 17:08 Freq: Status: Active Protocol: Document 05/11/18 14:30 RCC (Rec: 05/12/18 12:44 RCC [email or web address]) Sensation Evaluation Gross Sensation Gross Sensation WNL Comments Summary Comments possible R median nerve involvment with occasional R digits 1-3 numbness/tingling. Deep Tendon Reflex & Clonus Assessment Deep Tendon Reflex Brachioradialis Deep Tendon Reflex 2+ Normal Bilateral Tricep Deep Tendon Reflex 2+ Normal Bilateral Bicep Deep Tendon Reflex 2+ Normal PT-OP-J Posture/Palpation/Skin Start: 05/11/18 17:08 Freq: Status: Active Protocol: Document 05/11/18 14:30 RCC (Rec: 05/12/18 12:44 RCC [email or web address]) Posture Evaluation Position Sitting Head/C-Spine Posture Forward Head T-Spine Posture Increased Kyphosis Comments Posture Comments elevated shoulders bilaterally . PT-OP-K Range of Motion Start: 05/11/18 17:08 Freq: Status: Active Protocol: Document 05/11/18 14:30 RCC (Rec: 05/12/18 12:45 RCC [email or web address]) Cervical Spine Range of Motion Cervical Spine Active Degrees Testing Position Sitting Flexion 48 Extension 35 Rotation Left 50 Rotation Right 70 Lateral Flexion Left 24 Lateral Flexion Right 28 ROM Limitations Soft Tissue Tightness Comments tightness with SB L on the R cervical spine. PT-OP-L Special Tests Start: 05/11/18 17:08 Freq: Status: Active Protocol: Document 07/20/18 16:40 RCC (Rec: 07/22/18 17:33 RCC [email or web address]) Special Tests Elbow Special Tests Lateral Epicondylitis Extended Test Results positive L PT-OP-M Strength Start: 05/11/18 17:08 Freq: Status: Active Protocol: Document 07/20/18 16:40 RCC (Rec: 07/22/18 17:33 RCC [email or web address]) Elbow/Forearm Strength Elbow and Forearm Manual Muscle Testing Left Flexion (C6) 4+ Good+ Extension (C7) 4+ Good+ PT-OP-Q Treatments Start: 05/11/18 17:08 Freq: Status: Active Protocol: Document 08/01/18 17:30 RCC (Rec: 08/01/18 17:38 RCC [email or web address]) Therapeutic Exercises Sitting Exercises 4 Sitting Exercise Name pronation/supination, wrist flexion/extension Side bilateral Equipment Used Red Theraband flexbar Reps/Minutes 5 each Comments popping @ wrist, d/c 2 Sitting Exercise Name wrist extensor and flexor stretch Side left Reps/Minutes 2 x 30 sec hold Manual Therapy Treatment Soft Tissue Mobilization 1 Body Location ECRB, wrist extensors, common extensor proximal attachment Mobilization Type Strumming Intensity/Depth Superficial Body Position Sitting Comments Left UE Joint Mobilizations 1 Joint Lateral glide of forearm with volleyball assembler training. Grade IV Body Position Sitting Comments left PT-OP-R Modalities Start: 05/11/18 17:08 Freq: Status: Active Protocol: Document 08/01/18 17:30 RCC (Rec: 08/01/18 17:39 RCC [email or web address]) Ultrasound Therapy Treatment left lateral forearm Treatment Duration (minutes) 8 Patient Position Sitting Coupling Medium Ultrasound Gel Applicator Size (cm2) 5 Frequency Setting (mHz) 3 Mode Setting Pulsed Duty Cycle 50% Intensity Setting (w/cm2) 1.0 PT-OP-T Assessment and Plan Start: 05/11/18 17:08 Freq: Status: Active Protocol: Document 08/01/18 17:30 RCC (Rec: 09/05/18 17:38 RCC [email or web address]) Physical Therapy Assessment Assessment Summary Assessment Pt continues to have pain with holding and lifting with arm away from her body when not directly in front of her. She had decreased mobility of the wrist flexors as well with stretch on the L compared to the R, possibly due to decreased use of the LUE with activities. Physical Therapy Plan Frequency and Duration Frequency of Treatment 2x/Week Duration of Treatment 8 weeks Plan of Care Start Date 07/20/18 Plan of Care End Date 09/14/18 Next Visit Focus/Plan Next Note Type Treatment Note Next Visit Plan wall push ups, scaption strengthening. Cont with STR and US
--- NOTE | 2018-08-08 16:35 | PT.OTN ---
Current Diagnoses Lateral epicondylitis, left elbow (08/08/18) Physical Therapy Treatment Note PT-OP-A Visit Information Start: 05/11/18 17:08 Freq: Status: Active Protocol: Document 08/08/18 16:35 RCC (Rec: 08/08/18 16:44 RCC [email or web address]) Out-Patient Physical Therapy Visit Information Visit Information Visit Type Treatment Note Visit Start Time 16:05 Visit Stop Time 16:30 Total Visit Minutes 35 Visit Number 5/ (G-codes due @ 14th visit ) Number of UTILITY AGENT Visits 0 Evaluation Information Evaluation Date 05/11/18 PT-OP-B Current Condition Start: 05/11/18 17:08 Freq: Status: Active Protocol: Document 05/11/18 14:30 RCC (Rec: 05/12/18 12:36 RCC [email or web address]) Current Condition History of Current Condition Onset Date 06/2017 Current Complaints L lateral elbow/forearm pain History of Current Condition Pt is a 67 y/o female presenting to physical therapy with a c/o L lateral elbow and forearm pain. Initial injury noticed after moving into a new home in the [facility] in June of 2017. Pt reports pain has worsened since then, although has reached a point where she thinks it may start getting better. She also c/o bilateral neck and upper back pain, L>R . Aggravating factors include: lifting (i.e. likes to garden and difficulty lifting her planters). Pt has not found any relieving activities or positions besides not using it. She feels weakness in the L arm and hand. Occasional tingling on the R hand with doing her hair, but no c/o numbness tingling on the affected L hand side. Pt also c/o L anteromedial foot pain which initially was swollen 2 mo ago but now swelling is down and feeling a little better. She also has a R knee that is painful and hurts going down stairs first thing in the morning, but then gets better. No pain going up stairs. No imaging for any of these injuries has been done. She is R hand dominant. Treatment Goals Patient/Caregiver Goals Decrease pain, improve lifting tolerance. Prior Functional Status Baseline Function- ADL's Independent Baseline Function- Mobility Independent Baseline Function- Gait indep. community ambulator Baseline Function- Recreation/Hobbies Indep. gardening and lifting without pain in L forearm/ elbow. Current Functional Impairments (Reported) Functional Limitations- Recreation/ Unable to lift planters and Hobbies work in garden d/t pain. Personal Factors Other Personal Factors That May Effect h/o of bulging disc in lumbar Therapy/Recovery spine per pt- body mechanics with lifting when L arm able to do so. ROMAN and neck pain limiting her physical activity levels. PT-OP-C Subjective Start: 05/11/18 17:08 Freq: Status: Active Protocol: Document 08/08/18 16:35 RCC (Rec: 08/08/18 16:44 RCC [email or web address]) OP-PT Subjective Patient Comments Patient Comments Pt felt like compression has helped her elbow, she bought a brace online. 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 PT-OP-F Manual Assessment Start: 05/11/18 17:08 Freq: Status: Active Protocol: Document 07/20/18 16:40 RCC (Rec: 07/22/18 17:33 RCC [email or web address]) Manual Assessments Soft Tissue Assessment Soft Tissue Mobility Assessment Tenderness to palpation: L extensor carpi radialis brevis , common forearm extensor proximal attachment. PT-OP-H Neuro Start: 05/11/18 17:08 Freq: Status: Active Protocol: Document 05/11/18 14:30 RCC (Rec: 05/12/18 12:44 RCC [email or web address]) Sensation Evaluation Gross Sensation Gross Sensation WNL Comments Summary Comments possible R median nerve involvment with occasional R digits 1-3 numbness/tingling. Deep Tendon Reflex & Clonus Assessment Deep Tendon Reflex Brachioradialis Deep Tendon Reflex 2+ Normal Bilateral Tricep Deep Tendon Reflex 2+ Normal Bilateral Bicep Deep Tendon Reflex 2+ Normal PT-OP-J Posture/Palpation/Skin Start: 05/11/18 17:08 Freq: Status: Active Protocol: Document 05/11/18 14:30 RCC (Rec: 05/12/18 12:44 RCC [email or web address]) Posture Evaluation Position Sitting Head/C-Spine Posture Forward Head T-Spine Posture Increased Kyphosis Comments Posture Comments elevated shoulders bilaterally . PT-OP-K Range of Motion Start: 05/11/18 17:08 Freq: Status: Active Protocol: Document 05/11/18 14:30 RCC (Rec: 05/12/18 12:45 RCC [email or web address]) Cervical Spine Range of Motion Cervical Spine Active Degrees Testing Position Sitting Flexion 48 Extension 35 Rotation Left 50 Rotation Right 70 Lateral Flexion Left 24 Lateral Flexion Right 28 ROM Limitations Soft Tissue Tightness Comments tightness with SB L on the R cervical spine. PT-OP-L Special Tests Start: 05/11/18 17:08 Freq: Status: Active Protocol: Document 07/20/18 16:40 RCC (Rec: 07/22/18 17:33 RCC [email or web address]) Special Tests Elbow Special Tests Lateral Epicondylitis Extended Test Results positive L PT-OP-M Strength Start: 05/11/18 17:08 Freq: Status: Active Protocol: Document 07/20/18 16:40 RCC (Rec: 07/22/18 17:33 RCC [email or web address]) Elbow/Forearm Strength Elbow and Forearm Manual Muscle Testing Left Flexion (C6) 4+ Good+ Extension (C7) 4+ Good+ PT-OP-Q Treatments Start: 05/11/18 17:08 Freq: Status: Active Protocol: Document 08/08/18 16:35 RCC (Rec: 08/08/18 16:44 RCC [email or web address]) Therapeutic Exercises Standing Exercises 2 Standing Exercise Name scaption Side bilateral Resistance 2 lbs Reps/Minutes 10 1 Standing Exercise Name wall push up Side bilateral Reps/Minutes 10 Manual Therapy Treatment Soft Tissue Mobilization 1 Body Location ECRB, wrist extensors, common extensor proximal attachment Mobilization Type Strumming Intensity/Depth Superficial Body Position Sitting Comments Left UE Joint Mobilizations 1 Joint Lateral glide of forearm with boiler operators supervisor training. Grade IV Body Position Sitting Comments left PT-OP-R Modalities Start: 05/11/18 17:08 Freq: Status: Active Protocol: Document 08/08/18 16:35 RCC (Rec: 08/08/18 16:44 RCC [email or web address]) Ultrasound Therapy Treatment left lateral forearm Treatment Duration (minutes) 8 Patient Position Sitting Coupling Medium Ultrasound Gel Applicator Size (cm2) 5 Frequency Setting (mHz) 3 Mode Setting Pulsed Duty Cycle 50% Intensity Setting (w/cm2) 1.0 PT-OP-T Assessment and Plan Start: 05/11/18 17:08 Freq: Status: Active Protocol: Document 08/08/18 16:35 RCC (Rec: 08/08/18 16:44 RCC [email or web address]) Physical Therapy Assessment Assessment Summary Assessment Pt tolerated scaption with resistance and wall push ups without c/o L wrist/forearm pain, possibly due to increased forearm strength. Physical Therapy Plan Frequency and Duration Frequency of Treatment 2x/Week Duration of Treatment 8 weeks Plan of Care Start Date 07/20/18 Plan of Care End Date 09/14/18 Next Visit Focus/Plan Next Note Type Treatment Note Next Visit Plan progress AROM and strengthening of the forearm/ wrist.
--- NOTE | 2018-08-15 16:38 | PT.OTN ---
Current Diagnoses Lateral epicondylitis, left elbow (08/15/18) Physical Therapy Treatment Note PT-OP-A Visit Information Start: 05/11/18 17:08 Freq: Status: Active Protocol: Document 08/15/18 16:38 RCC (Rec: 08/15/18 16:42 RCC [email or web address]) Out-Patient Physical Therapy Visit Information Visit Information Visit Type Treatment Note Visit Start Time 16:00 Visit Stop Time 16:38 Total Visit Minutes 35 Visit Number 05/11 (G-codes due @ 14th visit ) Number of WELL LOGGING CAPTAIN MUD ANALYSIS Visits 0 Evaluation Information Evaluation Date 05/11/18 PT-OP-B Current Condition Start: 05/11/18 17:08 Freq: Status: Active Protocol: Document 05/11/18 14:30 RCC (Rec: 05/12/18 12:36 RCC [email or web address]) Current Condition History of Current Condition Onset Date 06/2017 Current Complaints L lateral elbow/forearm pain History of Current Condition Pt is a 67 y/o female presenting to physical therapy with a c/o L lateral elbow and forearm pain. Initial injury noticed after moving into a new home in the [facility] in June of 2017. Pt reports pain has worsened since then, although has reached a point where she thinks it may start getting better. She also c/o bilateral neck and upper back pain, L>R . Aggravating factors include: lifting (i.e. likes to garden and difficulty lifting her planters). Pt has not found any relieving activities or positions besides not using it. She feels weakness in the L arm and hand. Occasional tingling on the R hand with doing her hair, but no c/o numbness tingling on the affected L hand side. Pt also c/o L anteromedial foot pain which initially was swollen 2 mo ago but now swelling is down and feeling a little better. She also has a R knee that is painful and hurts going down stairs first thing in the morning, but then gets better. No pain going up stairs. No imaging for any of these injuries has been done. She is R hand dominant. Treatment Goals Patient/Caregiver Goals Decrease pain, improve lifting tolerance. Prior Functional Status Baseline Function- ADL's Independent Baseline Function- Mobility Independent Baseline Function- Gait indep. community ambulator Baseline Function- Recreation/Hobbies Indep. gardening and lifting without pain in L forearm/ elbow. Current Functional Impairments (Reported) Functional Limitations- Recreation/ Unable to lift planters and Hobbies work in garden d/t pain. Personal Factors Other Personal Factors That May Effect h/o of bulging disc in lumbar Therapy/Recovery spine per pt- body mechanics with lifting when L arm able to do so. ROMAN and neck pain limiting her physical activity levels. PT-OP-C Subjective Start: 05/11/18 17:08 Freq: Status: Active Protocol: Document 08/15/18 16:38 RCC (Rec: 08/15/18 16:42 RCC [email or web address]) OP-PT Subjective Patient Comments Patient Comments Pt is doing a little more with her L arm/hand but she still has pain with usual activities that were not painful prior to this episode. PT-OP-F Manual Assessment Start: 05/11/18 17:08 Freq: Status: Active Protocol: Document 07/20/18 16:40 RCC (Rec: 07/22/18 17:33 RCC [email or web address]) Manual Assessments Soft Tissue Assessment Soft Tissue Mobility Assessment Tenderness to palpation: L extensor carpi radialis brevis , common forearm extensor proximal attachment. PT-OP-H Neuro Start: 05/11/18 17:08 Freq: Status: Active Protocol: Document 05/11/18 14:30 RCC (Rec: 05/12/18 12:44 RCC [email or web address]) Sensation Evaluation Gross Sensation Gross Sensation WNL Comments Summary Comments possible R median nerve involvment with occasional R digits 1-3 numbness/tingling. Deep Tendon Reflex & Clonus Assessment Deep Tendon Reflex Brachioradialis Deep Tendon Reflex 2+ Normal Bilateral Tricep Deep Tendon Reflex 2+ Normal Bilateral Bicep Deep Tendon Reflex 2+ Normal PT-OP-J Posture/Palpation/Skin Start: 05/11/18 17:08 Freq: Status: Active Protocol: Document 05/11/18 14:30 RCC (Rec: 05/12/18 12:44 RCC [email or web address]) Posture Evaluation Position Sitting Head/C-Spine Posture Forward Head T-Spine Posture Increased Kyphosis Comments Posture Comments elevated shoulders bilaterally . PT-OP-K Range of Motion Start: 05/11/18 17:08 Freq: Status: Active Protocol: Document 05/11/18 14:30 RCC (Rec: 05/12/18 12:45 RCC [email or web address]) Cervical Spine Range of Motion Cervical Spine Active Degrees Testing Position Sitting Flexion 48 Extension 35 Rotation Left 50 Rotation Right 70 Lateral Flexion Left 24 Lateral Flexion Right 28 ROM Limitations Soft Tissue Tightness Comments tightness with SB L on the R cervical spine. PT-OP-L Special Tests Start: 05/11/18 17:08 Freq: Status: Active Protocol: Document 07/20/18 16:40 RCC (Rec: 07/22/18 17:33 RCC [email or web address]) Special Tests Elbow Special Tests Lateral Epicondylitis Extended Test Results positive L PT-OP-M Strength Start: 05/11/18 17:08 Freq: Status: Active Protocol: Document 07/20/18 16:40 RCC (Rec: 07/22/18 17:33 RCC [email or web address]) Elbow/Forearm Strength Elbow and Forearm Manual Muscle Testing Left Flexion (C6) 4+ Good+ Extension (C7) 4+ Good+ PT-OP-Q Treatments Start: 05/11/18 17:08 Freq: Status: Active Protocol: Document 08/15/18 16:38 RCC (Rec: 08/15/18 16:42 RCC [email or web address]) Manual Therapy Treatment Soft Tissue Mobilization 1 Body Location ECRB, wrist extensors, common extensor proximal attachment Mobilization Type Strumming Intensity/Depth Superficial Body Position Sitting Comments Left UE Joint Mobilizations 1 Joint Lateral glide of forearm with tooler training. Grade IV Body Position Sitting Comments left Taping 1 Body Location L lateral forearm Type of Tape Kinesio Tape Comments X @ lateral epicondyle, space correction PT-OP-R Modalities Start: 05/11/18 17:08 Freq: Status: Active Protocol: Document 08/15/18 16:38 RCC (Rec: 08/15/18 16:42 RCC [email or web address]) Ultrasound Therapy Treatment left lateral forearm Treatment Duration (minutes) 8 Patient Position Sitting Coupling Medium Ultrasound Gel Applicator Size (cm2) 5 Frequency Setting (mHz) 3 Mode Setting Pulsed Duty Cycle 50% Intensity Setting (w/cm2) 1.0 PT-OP-T Assessment and Plan Start: 05/11/18 17:08 Freq: Status: Active Protocol: Document 08/15/18 16:38 RCC (Rec: 08/15/18 16:42 [facility] [email or web address]) Physical Therapy Assessment Assessment Summary Assessment Pt appeared to have less discomfort with LUE movement after kinesiotape placed, will monitor progress over the next week and report back. Pt continues to be limited with recreational activities, including inability to lift flower pots due to pain. Physical Therapy Plan Frequency and Duration Frequency of Treatment 2x/Week Duration of Treatment 8 weeks Plan of Care Start Date 07/20/18 Plan of Care End Date 09/14/18 Next Visit Focus/Plan Next Note Type Treatment Note Next Visit Plan check tolerance to kinesiotape , progress UE strength and flexibility.
--- NOTE | 2018-08-22 16:40 | PT.OTN ---
Current Diagnoses Lateral epicondylitis, left elbow (08/22/18) Physical Therapy Treatment Note PT-OP-A Visit Information Start: 05/11/18 17:08 Freq: Status: Active Protocol: Document 08/22/18 16:40 RCC (Rec: 08/22/18 17:18 RCC [email or web address]) Out-Patient Physical Therapy Visit Information Visit Information Visit Type Treatment Note Visit Start Time 16:00 Visit Stop Time 16:40 Total Visit Minutes 40 Visit Number 7/ (G-codes due @ 14th visit ) Number of FURNACE TAPPER Visits 0 Evaluation Information Evaluation Date 05/11/18 PT-OP-B Current Condition Start: 05/11/18 17:08 Freq: Status: Active Protocol: Document 05/11/18 14:30 RCC (Rec: 05/12/18 12:36 RCC [email or web address]) Current Condition History of Current Condition Onset Date 06/2017 Current Complaints L lateral elbow/forearm pain History of Current Condition Pt is a 67 y/o female presenting to physical therapy with a c/o L lateral elbow and forearm pain. Initial injury noticed after moving into a new home in the [facility] in June of 2017. Pt reports pain has worsened since then, although has reached a point where she thinks it may start getting better. She also c/o bilateral neck and upper back pain, L>R . Aggravating factors include: lifting (i.e. likes to garden and difficulty lifting her planters). Pt has not found any relieving activities or positions besides not using it. She feels weakness in the L arm and hand. Occasional tingling on the R hand with doing her hair, but no c/o numbness tingling on the affected L hand side. Pt also c/o L anteromedial foot pain which initially was swollen 2 mo ago but now swelling is down and feeling a little better. She also has a R knee that is painful and hurts going down stairs first thing in the morning, but then gets better. No pain going up stairs. No imaging for any of these injuries has been done. She is R hand dominant. Treatment Goals Patient/Caregiver Goals Decrease pain, improve lifting tolerance. Prior Functional Status Baseline Function- ADL's Independent Baseline Function- Mobility Independent Baseline Function- Gait indep. community ambulator Baseline Function- Recreation/Hobbies Indep. gardening and lifting without pain in L forearm/ elbow. Current Functional Impairments (Reported) Functional Limitations- Recreation/ Unable to lift planters and Hobbies work in garden d/t pain. Personal Factors Other Personal Factors That May Effect h/o of bulging disc in lumbar Therapy/Recovery spine per pt- body mechanics with lifting when L arm able to do so. ROMAN and neck pain limiting her physical activity levels. PT-OP-C Subjective Start: 05/11/18 17:08 Freq: Status: Active Protocol: Document 08/22/18 16:40 RCC (Rec: 08/22/18 17:18 RCC [email or web address]) OP-PT Subjective Patient Comments Patient Comments Pt states that the kinesiotape has helped. Overall she does feel like she has improved, but still has pain with some heavier lifting activities. PT-OP-F Manual Assessment Start: 05/11/18 17:08 Freq: Status: Active Protocol: Document 08/22/18 16:40 RCC (Rec: 08/22/18 17:18 RCC [email or web address]) Manual Assessments Soft Tissue Assessment Soft Tissue Mobility Assessment slight tenderness to palpation : L extensor carpi radialis brevis, common forearm extensor proximal attachment. PT-OP-H Neuro Start: 05/11/18 17:08 Freq: Status: Active Protocol: Document 05/11/18 14:30 RCC (Rec: 05/12/18 12:44 RCC [email or web address]) Sensation Evaluation Gross Sensation Gross Sensation WNL Comments Summary Comments possible R median nerve involvment with occasional R digits 1-3 numbness/tingling. Deep Tendon Reflex & Clonus Assessment Deep Tendon Reflex Brachioradialis Deep Tendon Reflex 2+ Normal Bilateral Tricep Deep Tendon Reflex 2+ Normal Bilateral Bicep Deep Tendon Reflex 2+ Normal PT-OP-J Posture/Palpation/Skin Start: 05/11/18 17:08 Freq: Status: Active Protocol: Document 05/11/18 14:30 RCC (Rec: 05/12/18 12:44 RCC [email or web address]) Posture Evaluation Position Sitting Head/C-Spine Posture Forward Head T-Spine Posture Increased Kyphosis Comments Posture Comments elevated shoulders bilaterally . PT-OP-K Range of Motion Start: 05/11/18 17:08 Freq: Status: Active Protocol: Document 05/11/18 14:30 RCC (Rec: 05/12/18 12:45 RCC [email or web address]) Cervical Spine Range of Motion Cervical Spine Active Degrees Testing Position Sitting Flexion 48 Extension 35 Rotation Left 50 Rotation Right 70 Lateral Flexion Left 24 Lateral Flexion Right 28 ROM Limitations Soft Tissue Tightness Comments tightness with SB L on the R cervical spine. PT-OP-L Special Tests Start: 05/11/18 17:08 Freq: Status: Active Protocol: Document 07/20/18 16:40 RCC (Rec: 07/22/18 17:33 RCC [email or web address]) Special Tests Elbow Special Tests Lateral Epicondylitis Extended Test Results positive L PT-OP-M Strength Start: 05/11/18 17:08 Freq: Status: Active Protocol: Document 08/22/18 16:40 RCC (Rec: 08/22/18 17:18 RCC [email or web address]) Hand Priest/Pinch Strength Hand Strength Left Comments Priest: elbow flex 90 deg & arm @ side- L 45 lbs, R 57 lbs Priest: elbow extended & shoulder @ 90 deg- L 31 lbs, R 53 lbs PT-OP-Q Treatments Start: 05/11/18 17:08 Freq: Status: Active Protocol: Document 08/22/18 16:40 RCC (Rec: 08/22/18 17:18 RCC [email or web address]) Manual Therapy Treatment Soft Tissue Mobilization 1 Body Location ECRB, wrist extensors, common extensor proximal attachment Mobilization Type Strumming Intensity/Depth Superficial Body Position Sitting Comments Left UE Joint Mobilizations 1 Joint 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 Grade IV Body Position Sitting Comments left Taping 1 Body Location L lateral forearm Type of Tape Kinesio Tape Comments X @ lateral epicondyle, space correction PT-OP-R Modalities Start: 05/11/18 17:08 Freq: Status: Active Protocol: Document 08/22/18 16:40 RCC (Rec: 08/22/18 17:18 RCC [email or web address]) Ultrasound Therapy Treatment left lateral forearm Treatment Duration (minutes) 8 Patient Position Sitting Coupling Medium Ultrasound Gel Applicator Size (cm2) 5 Frequency Setting (mHz) 3 Mode Setting Pulsed Duty Cycle 50% Intensity Setting (w/cm2) 1.0 PT-OP-T Assessment and Plan Start: 05/11/18 17:08 Freq: Status: Active Protocol: Document 08/22/18 16:40 RCC (Rec: 08/22/18 17:18 RCC [email or web address]) Physical Therapy Assessment Goals Four Impairment Unable to garden, lift planters without increased pain and weakness Short Term Goal (STG) Pt able to lift small planters with 2/10 or less pain in L elbow. STG Duration 4 weeks Long-Term Goal (LTG) Pt able to lift planters to her prior level of ability and 1/10 pain or less in L elbow LTG Duration 8 weeks Three Impairment QuickDASH disability score Short Term Goal (STG) <40 disability score on QuickDASH STG Duration 4 weeks Long-Term Goal (LTG) 25 or less on disability score on QuickDASH LTG Duration 8 weeks Two Impairment LUE weakness Short Term Goal (STG) 4+/5 or greater L shoulder flexion, abduction, IR, ER MMT . STG Duration 4 weeks Long-Term Goal (LTG) 5/5 L shoulder and elbow MMT. 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 Pt still has pain with lifting heavy objects, but overall does appear to be improving since initial evaluation. At this time, pt requested d/c due to insurance reasons. Pt to contact PCP if pain/ symptoms continue. Expect pt's symptoms to continue to improve slowly and she has a HEP for stretching and strengthening to continue to improve her condition. Physical Therapy Plan Frequency and Duration Frequency of Treatment 2x/Week Duration of Treatment 8 weeks Plan of Care Start Date 07/20/18 Plan of Care End Date 09/14/18 Discharge Physical Therapy Discharge Reasons Patient Request Discharge Comments insurance reasons
== END 2018-09-07 09:39 ==
LOC: PHYS 16:00
PROVIDERS: PCP Family Medicine; Visit Provider Family Medicine
DX: M77.12 Lateral epicondylitis, left elbow (principal)
CPT/HCPCS: 97035; 97110; 97140; 97162

== ENCOUNTER → 2018-10-31 15:48 | Outpatient (CLI) | payer OTHER, SELFPAY ==
[2018-10-31 18:41] LABS: Bacteria Urine None Seen; WBC Urine None Seen (0-5/HPF)
[2018-10-31 19:07] LABS: Appearance Urine UA CLEAR; Bilirubin Urine UA NEGATIVE (NEGATIVE); Color Urine UA YELLOW; Glucose Urine UA NEGATIVE (Normal); Ketones Urine UA NEGATIVE (NEGATIVE); Leukocyte Esterase Urine UA NEGATIVE (NEGATIVE); Nitrite Urine UA NEGATIVE (Negative); Occult Blood Urine UA 3+ (Negative); Protein Urine UA NEGATIVE (Negative); Specific Gravity Urine UA <=1.005 (1.000-1.035); Urobilinogen Urine UA 0.2 E.U./dL (0.2); pH Urine UA 6.5 (4.5-8.0)
[2018-10-31 19:10] LABS: Amorphous Sediment Urine 1+; Culture Indicated Urine Cult Not Indicated; RBC Urine 5-10/HPF (0-5/HPF)
== END ==
PROVIDERS: PCP Family Medicine; Visit Provider Family Medicine
DX: R30.0 Dysuria (principal); R31.9 Hematuria, unspecified; R39.15 Urgency of urination
CPT/HCPCS: 81001

== ENCOUNTER → 2019-05-10 11:29 | Outpatient (CLI) | payer OTHER, SELFPAY ==
--- NOTE | 2019-05-10 | DI.MG.S_ITS ---
BILATERAL DIGITAL SCREENING MAMMOGRAM 3D/2D WITH CAD: 05/10/2019 CLINICAL: Routine screening. Comparison is made to exams dated: 05/09/2018 mammogram, 04/25/2018 mammogram, 06/07/2016 mammogram, 06/03/2015 mammogram, and 06/02/2014 mammogram - [facility]. There are scattered fibroglandular elements in both breasts. Current study was also evaluated with a Computer Aided Detection (CAD) system. There are mole markers on both breasts. No significant masses, calcifications, or other findings are seen in either breast. There has been no significant interval change. IMPRESSION: NEGATIVE There is no mammographic evidence of malignancy. A 1 year screening mammogram is recommended. This exam was interpreted at Station ID: [id number]. NOTE: For mammograms, a report in lay terms will be sent to the patient. Approximately 15% of breast malignancies will not be visualized mammographically. In the management of a palpable breast mass, a negative mammogram must not discourage biopsy of a clinically suspicious lesion. Electronically Signed By: Georges gray/eve:05/10/2019 12:54:35 letter sent: Normal Exam ACR BI-RADS Category 1: Negative [id number]
== END ==
PROVIDERS: PCP Family Medicine; Visit Provider Family Medicine
DX: Z12.31 Encounter for screening mammogram for malignant neoplasm of breast (principal)
CPT/HCPCS: 77063; 77067

== ENCOUNTER → 2019-07-19 08:05 | Outpatient (CLI) | payer OTHER, SELFPAY ==
--- NOTE | 2019-07-19 | DI.MRI.S_ITS ---
PROCEDURE: MR CERVICAL SPINE WO CON INDICATIONS: Pain in right shoulder TECHNIQUE: Noncontrast sagittal T1 spin echo and T2 fast spin echo, sagittal STIR, foraminal oblique sagittal T2 fast spin echo, and axial gradient echo or T2 fast spin echo through the cervical spine. COMPARISON: None. FINDINGS: Image quality: Excellent. Alignment and Curvature: Straightening of the normal lordotic curvature. Trace retrolisthesis of C4 on C5 Bone Marrow: No acute fracture. Multilevel degenerative endplate sclerosis and spurring. Diffuse facet arthropathy. Spinal Cord: Visualized spinal cord has normal size and signal. No cerebellar tonsillar herniation. Paraspinous Soft Tissues: No paravertebral masses. Prevertebral soft tissues are normal in thickness. C2-C3: Normal appearance. C3-C4: No definite canal stenosis. Mild bilateral neuroforaminal narrowing with minimal nerve root compression. C4-C5: Moderate canal stenosis with effacement of the anterior and posterior thecal sac. There is mild mass effect on the cord. Moderate right foraminal stenosis with nerve root compression. Mild left foraminal narrowing C5-C6: Minimal central canal narrowing. Mild to moderate right foraminal stenosis with mild nerve root compression. Mild left foraminal narrowing C6-C7: Mild central canal narrowing. The right foraminal stenosis. Moderate left foraminal stenosis with possible minimal nerve root compression. C7-T1: No canal stenosis. No foraminal narrowing. At IMPRESSION: Trace spondylolisthesis as above. Diffuse spondylosis and facet disease. Moderate C4-C5 canal stenosis. Numerous bilateral foraminal stenoses as detailed above by spinal level. Dictated by: Dillon Adan M.D. on 07/19/2019 at 10:15 Approved by: Dillon Adan M.D. on 07/19/2019 at 10:20
== END ==
PROVIDERS: PCP Family Medicine; Visit Provider Orthopaedic Surgery
DX: M43.10 Spondylolisthesis, site unspecified (principal); M48.02 Spinal stenosis, cervical region
CPT/HCPCS: 72141

== ENCOUNTER → 2019-10-30 10:00 | Outpatient (CLI) | payer OTHER, SELFPAY ==
[2019-10-30 10:41] LABS: Add Manual Diff / Slide Review NO; Basophils Absolute Auto 0 /uL (0-100); Basophils Percent Auto 0.6 % (0-2); Eosinophils Absolute Auto 100 /uL (0-450); Eosinophils Percent Auto 2.9 % (2-4); Hematocrit 37.9 % (36-46); Hemoglobin 12.9 g/dL (12.0-16.0); Lymphocytes Absolute Auto 1200 /uL (1100-4500); Lymphocytes Percent Auto 25.5 % (25-40); Mean Corpuscular Hemoglobin 32.9 PG (26-34); Mean Corpuscular Volume 96.6 fL (80-100); Monocytes Absolute Auto 400 /uL (0-900); Neutrophils Absolute Auto 2900 /uL (1500-7000); Platelet Count 231 X10^3/uL (150-400); Red Blood Cell Count 3.92 X10^6/uL (4.0-5.2); Red Cell Distribution Width 13.5 % (11.6-14.8); White Blood Cell Count 4.7 X10^3/uL (4.5-11.0)
[2019-10-30 11:08] LABS: Alanine Aminotransferase 46 IU/L (<35); Albumin 4.5 g/dL (3.5-5.0); Albumin Globulin Ratio 1.6 (1.0-2.8); Alkaline Phosphatase 54 U/L (38-126); Aspartate Aminotransferase 50 IU/L (14-36); BUN Creatinine Ratio 21.4 (6-22); Bilirubin Total 0.5 mg/dL (0.2-1.3); Blood Urea Nitrogen 15 mg/dL (7-17); Calcium 9.7 mg/dL (8.4-10.2); Carbon Dioxide 26 mmol/L (22-32); Chloride 107 mmol/L (98-107); Cholesterol 191 mg/dL (140-199); Estimated Glomerular Filt Rate > 60.0 mL/min (>60); Globulin 2.8 g/dL (1.7-4.1); Glucose 117 mg/dL (80-110); HDL Cholesterol 39 mg/dL (40-60); HEMOLYSIS < 15 (0-50); LDL Cholesterol Calculated 128 mg/dL (<100); Potassium 4.2 mmol/L (3.4-5.1); Sodium 146 mmol/L (137-145); Total Protein 7.3 g/dL (6.3-8.2); Triglycerides 121 mg/dL (35-150)
== END ==
PROVIDERS: PCP Family Medicine; Visit Provider Family Medicine
DX: Z13.29 Encounter for screening for other suspected endocrine disorder (principal); E78.5 Hyperlipidemia, unspecified; I10 Essential (primary) hypertension
CPT/HCPCS: 36415; 80053; 80061; 84443; 85025

== ENCOUNTER → 2019-11-08 14:35 | Outpatient (CLI) | payer OTHER, SELFPAY ==
[2019-11-08 15:33] LABS: Hemoglobin A1C% w Est Avg Glu 5.2 % (4.0-6.0)
== END ==
PROVIDERS: PCP Family Medicine; Visit Provider Family Medicine
DX: R73.9 Hyperglycemia, unspecified (principal)
CPT/HCPCS: 36415; 83036

== ENCOUNTER → 2020-05-14 13:46 | Outpatient (CLI) | payer OTHER, SELFPAY ==
--- NOTE | 2020-05-14 | DI.MG.S_ITS ---
BILATERAL DIGITAL SCREENING MAMMOGRAM 3D/2D WITH CAD: 05/14/2020 CLINICAL: Routine screening. Comparison is made to exams dated: 05/10/2019 mammogram, 05/09/2018 mammogram, 04/25/2018 mammogram, and 06/07/2016 mammogram - [facility]. There are scattered fibroglandular elements in both breasts. Current study was also evaluated with a Computer Aided Detection (CAD) system. There are mole markers on both breasts. No significant masses, calcifications, or other findings are seen in either breast. There has been no significant interval change. IMPRESSION: NEGATIVE There is no mammographic evidence of malignancy. A 1 year screening mammogram is recommended. This exam was interpreted at Station ID: [id number]. NOTE: For mammograms, a report in lay terms will be sent to the patient. Approximately 15% of breast malignancies will not be visualized mammographically. In the management of a palpable breast mass, a negative mammogram must not discourage biopsy of a clinically suspicious lesion. Electronically Signed By: Sam juarez/eve:05/14/2020 16:43:54 letter sent: Normal Exam ACR BI-RADS Category 1: Negative 3341F
== END ==
PROVIDERS: PCP Family Medicine; Referring Provider Family Medicine; Visit Provider Family Medicine
DX: Z12.31 Encounter for screening mammogram for malignant neoplasm of breast (principal)
CPT/HCPCS: 77063; 77067

== ENCOUNTER → 2020-12-31 10:10 | Outpatient (CLI) | payer OTHER, SELFPAY ==
[2020-12-31 11:18] LABS: Alanine Aminotransferase 55 IU/L (<35); Albumin 4.5 g/dL (3.5-5.0); Albumin Globulin Ratio 1.4 (1.0-2.8); Alkaline Phosphatase 55 U/L (38-126); Aspartate Aminotransferase 47 IU/L (14-36); Bilirubin Total 0.4 mg/dL (0.2-1.3); Blood Urea Nitrogen 17 mg/dL (7-17); Calcium 9.7 mg/dL (8.4-10.2); Carbon Dioxide 29 mmol/L (22-32); Chloride 107 mmol/L (98-107); Estimated Glomerular Filt Rate > 60.0 mL/min (>60); Globulin 3.2 g/dL (1.7-4.1); Glucose 125 mg/dL (80-110); HEMOLYSIS < 15 (0-50); Potassium 4.2 mmol/L (3.4-5.1); Sodium 142 mmol/L (137-145); Total Protein 7.7 g/dL (6.3-8.2)
[2020-12-31 11:28] LABS: Hemoglobin A1C% w Est Avg Glu 5.3 % (4.0-6.0)
== END ==
PROVIDERS: PCP Family Medicine; Referring Provider Family Medicine; Visit Provider Family Medicine
DX: I10 Essential (primary) hypertension (principal); R73.01 Impaired fasting glucose; Z83.3 Family history of diabetes mellitus
CPT/HCPCS: 36415; 80053; 83036

== ENCOUNTER → 2021-02-12 13:18 | Outpatient (CLI) | payer MEDICARE, SELFPAY ==
[2021-02-12] MEDS: COVID-19 VACC #1, MRNA(MOD) 100 MCG/0.5 ML VIAL IM (13:26)
== END ==
PROVIDERS: PCP Family Medicine; Visit Provider Internal Medicine
DX: Z23 Encounter for immunization (principal)
CPT/HCPCS: 0011A; 91301

== ENCOUNTER → 2021-03-18 15:16 | Outpatient (CLI) | payer MEDICARE, SELFPAY ==
[2021-03-18] MEDS: COVID-19 VACC #2, MRNA(MOD) 100 MCG/0.5 ML VIAL IM (15:22)
== END ==
PROVIDERS: PCP Family Medicine; Visit Provider Internal Medicine
DX: Z23 Encounter for immunization (principal)
CPT/HCPCS: 0012A; 91301

== ENCOUNTER → 2021-06-19 14:14 | Outpatient (CLI) | payer OTHER, SELFPAY ==
--- NOTE | 2021-06-19 | DI.MG.S_ITS ---
BILATERAL DIGITAL SCREENING MAMMOGRAM 3D/2D WITH CAD: 06/19/2021 CLINICAL: Routine screening. Comparison is made to exams dated: 05/14/2020 mammogram, 05/10/2019 mammogram, and 04/25/2018 mammogram - [facility]. There are scattered fibroglandular elements in both breasts. Current study was also evaluated with a Computer Aided Detection (CAD) system. There are mole markers on both breasts. No significant masses, calcifications, or other findings are seen in either breast. There has been no significant interval change. IMPRESSION: NEGATIVE There is no mammographic evidence of malignancy. A 1 year screening mammogram is recommended. This exam was interpreted at Station ID: [id number]. NOTE: For mammograms, a report in lay terms will be sent to the patient. Approximately 15% of breast malignancies will not be visualized mammographically. In the management of a palpable breast mass, a negative mammogram must not discourage biopsy of a clinically suspicious lesion. Electronically Signed By: Sd Vann M.D., jr/eve:06/21/2021 09:36:59 letter sent: Normal Exam ACR BI-RADS Category 1: Negative 3341F
== END ==
PROVIDERS: PCP Family Medicine; Referring Provider Family Medicine; Visit Provider Family Medicine
DX: Z12.31 Encounter for screening mammogram for malignant neoplasm of breast (principal)
CPT/HCPCS: 77063; 77067

== ENCOUNTER → 2021-09-30 14:28 | Outpatient (CLI) | payer OTHER, SELFPAY | PROVIDERS: PCP Family Medicine; Visit Provider Family Medicine | DX: N90.4 Leukoplakia of vulva (principal) | CPT/HCPCS: 87210 ==

== ENCOUNTER → 2021-09-30 14:29 | Outpatient (CLI) | payer OTHER, SELFPAY ==
[2021-09-30 15:27] LABS: Add Manual Diff / Slide Review NO; Basophils Absolute Auto 0 /uL (0-100); Basophils Percent Auto 0.9 % (0-2); Eosinophils Absolute Auto 100 /uL (0-450); Eosinophils Percent Auto 2.3 % (2-4); Hematocrit 36.5 % (36-46); Hemoglobin 12.6 g/dL (12.0-16.0); Lymphocytes Absolute Auto 1200 /uL (1100-4500); Lymphocytes Percent Auto 31.1 % (25-40); Mean Corpuscular HGB Conc 34.5 % (30-36); Mean Corpuscular Hemoglobin 33.1 PG (26-34); Mean Corpuscular Volume 96.1 fL (80-100); Monocytes Absolute Auto 400 /uL (0-900); Monocytes Percent Auto 8.9 % (3-14); Neutrophils Absolute Auto 2300 /uL (1500-7000); Neutrophils Percent Auto 56.8 % (50-75); Platelet Count 231 X10^3/uL (150-400); Red Blood Cell Count 3.79 X10^6/uL (4.0-5.2); Red Cell Distribution Width 13.6 % (11.6-14.8)
[2021-09-30 16:48] LABS: Alanine Aminotransferase 41 IU/L (<35); Albumin 4.5 g/dL (3.5-5.0); Albumin Globulin Ratio 1.6 (1.0-2.8); Alkaline Phosphatase 57 U/L (38-126); Aspartate Aminotransferase 40 IU/L (14-36); BUN Creatinine Ratio 22.1 (6-22); Bilirubin Total 0.5 mg/dL (0.2-1.3); Blood Urea Nitrogen 17 mg/dL (7-17); Calcium 10.4 mg/dL (8.4-10.2); Carbon Dioxide 28 mmol/L (22-32); Chloride 104 mmol/L (98-107); Estimated Glomerular Filt Rate > 60.0 mL/min (>60); Globulin 2.8 g/dL (1.7-4.1); Glucose 101 mg/dL (80-110); HEMOLYSIS < 15 (0-50); Potassium 4.6 mmol/L (3.4-5.1); Sodium 141 mmol/L (137-145); Total Protein 7.3 g/dL (6.3-8.2)
== END ==
PROVIDERS: PCP Family Medicine; Referring Provider Family Medicine; Visit Provider Family Medicine
DX: R23.3 Spontaneous ecchymoses (principal); R74.01 Elevation of levels of liver transaminase levels; N90.4 Leukoplakia of vulva
CPT/HCPCS: 36415; 80053; 85025; 87210

== ENCOUNTER 2022-04-25 08:56 | Emergency (ER) | payer OTHER, SELFPAY ==
[2022-04-25] VITALS (7 sets, daily range): BP systolic 185–221; BP diastolic 77–89; PULSE 50–64; RESP 16; TEMP 36.6; O2SAT 92–99; BMI 36.6
--- NOTE | 2022-04-25 09:32 | ED.ABDPAIN ---
HPI - Abdominal Pain General Chief Complaint: Abdominal Pain Stated Complaint: Dr. Villarreal thinks appendicitis Time Seen by Provider: 04/25/22 09:14 Source: patient Mode of arrival: Ambulatory Limitations: no limitations History of Present Illness HPI narrative: This is a 71-year-old female who comes emergency department with complaint of pain that started in the right lower quadrant the wraps around to her hip then back and then down her right leg. This started over the last several days. She has been afebrile, no nausea or vomiting. She denies pain on the alternate side. Patient has not noted any rashes or skin changes. No diarrhea constipation. No dysuria, urgency or frequency. Patient has some tingling down her legs which she states is new as well. She denies any loss of bowel or bladder control or retention. No saddle anesthesia. Patient is on metoprolol for hypertension and estrogen. She has had a prior total hysterectomy but states her appendix is still present. No tobacco, or alcohol or illicit. Related Data Home Medications Medication Instructions Recorded Confirmed aspirin 81 mg chewable tablet 81 mg PO QDAY #0 03/20/17 11/25/21 multivitamin (Multiple Vitamins) 1 tab PO QDAY #0 03/16/18 09/30/21 vitamin B complex (B 1 tab PO QDAY #0 03/16/18 09/30/21 Complex-Vitamin B12) Fish Oil See Rx Instructions .ROUTE .COMPLEX 07/08/19 09/30/21 Turmeric See Rx Instructions .ROUTE .COMPLEX 07/08/19 09/30/21 Vitamin D3 See Rx Instructions .ROUTE .COMPLEX 07/08/19 09/30/21 ascorbate calcium (vitamin C) 500 500 mg PO DAILY 07/08/19 09/30/21 mg tablet calcium citrate 250 mg PO 4XW tab 07/08/19 09/30/21 Previous Rx's Medication Instructions Recorded albuterol sulfate 90 mcg/actuation 2 puff INH Q4HP PRN #1 ea 03/16/18 aerosol inhaler (Ventolin HFA) methocarbamol 750 mg tablet 750 mg PO TID PRN #30 tab 01/26/21 clobetasol-emollient 0.05 % 1 applic TOP .qhs #15 g 11/25/21 topical cream estradiol 1 g VAGINAL .COMPLEX #42.5 g 12/01/21 estradiol 1 mg tablet (Estrace) 1 mg PO QWEEK #12 tab 04/12/22 metoprolol tartrate 25 mg tablet 75 mg PO BID #540 tab 04/12/22 cyclobenzaprine 10 mg tablet 10 mg PO TID PRN #10 tab 04/25/22 hydrocodone 5 mg-acetaminophen 325 1 tab PO Q6H PRN #10 tab 04/25/22 mg tablet Allergies Allergy/AdvReac Type Severity Reaction Status Date / Time crab [CRAB] Allergy Severe Swollen Verified 11/25/21 16:06 throat esmolol [ESMOLOL] Allergy Unknown Patient Verified 11/25/21 16:06 does not remember benzonatate AdvReac Intermediate Patient Verified 11/25/21 16:06 [From Jose Antonio Kramer] can't remember guaifenesin [GUAIFENESIN] AdvReac Unknown Patient Verified 11/25/21 16:06 can't remember Review of Systems Review of Systems ROS Unobtainable: All systems reviewed & are unremarkable except as noted in HPI and below Patient History Medical History Anemia Anxiety Cataracts, bilateral Chicken pox Chronic back pain Depression Dry skin Eczema (~1974) Endometriosis (~1987) GERD (gastroesophageal reflux disease) Heavy menstrual period (~1959) Hemorrhoid History of liver disease History of urinary incontinence (~2017) Hyperlipidemia Hyperlipidemia Hypertension Measles Mumps Neutropenia (~1999) Restless leg syndrome (~1974) Sleep apnea Transaminitis Transient ischemic attack Surgical History Anesthesia History of tonsillectomy (~1949) Status post hysterectomy (~1987) Family History Brother Mental health problem Mother Heart disease Father Diabetes mellitus Social History Smoking Status: Former smoker Tobacco: How many years used: 2 second hand exposure: No alcohol intake: current (wine or micheline once in a while socially.) substance use type: does not use Smoking Status: Former smoker Exam Narrative Exam Narrative: GENERAL: Alert and oriented x three, female in mild distress. HEENT: Head normocephalic, atraumatic, EOMI, pupils reactive, face symmetric, moist mucous membranes NECK: Supple, full range of motion CARDIOVASCULAR: Regular rate and rhythm without murmurs, rubs or gallops. RESPIRATORY: Breath sounds equal bilaterally, no wheezes rales or rhonchi. ABDOMEN: Soft, positive for right lower quadrant tenderness. Patient is also tender on the left lower quadrant when palpated on the right. Normoactive bowel sounds all 4 quadrants. No guarding or rebound, rigidity, no mass, nondistended. BACK: No cervical, thoracic or lumbar vertebral point tenderness. Patient has slightly decreased range of motion. Patient's gait is [antalgic/normal]. Rectal exam is deferred. Muscle strength is 5/5 in lower extremities, DTRs are 2/4 and lower extremities. Dorsalis pedis and tibialis pulses are 2+ and lower extremities. Sensation is intact in the lower extremities. : No CVA tenderness EXTREMITIES: Normal range of motion, no clubbing or edema. Neurovascularly intact NEUROLOGICAL: Cranial nerves II through XII grossly intact. Moving all extremities SKIN: Warm, dry, no petechiae, no rashes or lesions. Initial Vital Signs Initial Vital Signs: Vital Signs Pulse Oximetry 92 04/25/22 09:02 Course Orders Ordered: ED Orders 04/25/22 09:52 CT abdomen pelvis w con Stat Discontinued Medications Sodium Chloride (Normal Saline 0.9%) 1,000 mls @ 150 mls/hr IV CONT JACK Last Infusion: 04/25/22 12:09 Dose: 0 mls/hr Documented by: Admin: 04/25/22 10:13 Dose: 150 mls/hr Documented by: AJAY Ketorolac Tromethamine (Ketorolac 30 Mg/Ml Vial) 15 mg IV NOW ONE Stop: 04/25/22 09:53 Last Admin: 04/25/22 10:12 Dose: 15 mg Documented by: AJAY Vital Signs Vital signs: Vital Signs - 8 hr 04/25/22 12:10 04/25/22 12:12 Pulse Rate 56 L Blood Pressure 221/89 H Pulse Oximetry 97 99 MDM - Abdominal Pain Lab Data Result diagrams: 04/25/22 09:05 04/25/22 09:05 Labs: Lab Results 04/25/22 04/25/22 Range/Units 09:05 09:05 WBC 4.0 L (4.5-11.0) X10^3/uL RBC 3.86 L (4.0-5.2) X10^6/uL Hgb 12.9 (12.0-16.0) g/dL Hct 37.0 (36-46) % MCV 95.8 (80-100) fL MCH 33.5 (26-34) PG MCHC 35.0 (30-36) % RDW 13.3 (11.6-14.8) % Plt Count 195 (150-400) X10^3/uL Neut % (Auto) 54.6 (50-75) % Lymph % (Auto) 33.8 (25-40) % Ida % (Auto) 7.3 (3-14) % Eos % (Auto) 1.5 L (2-4) % Baso % (Auto) 2.8 H (0-2) % Neut # (Auto) 2200 (8742-3658) /uL Lymph # (Auto) 1400 (8877-2366) /uL Ida # (Auto) 300 (0-900) /uL Eos # (Auto) 100 (0-450) /uL Baso # (Auto) 100 (0-100) /uL Sodium 142 (137-145) mmol/L Potassium 4.3 (3.4-5.1) mmol/L Chloride 108 H (98-107) mmol/L Carbon Dioxide 28 (22-32) mmol/L BUN 15 (7-17) mg/dL Creatinine 0.72 (0.52-1.04) mg/dL Estimated GFR > 60 (>60) mL/min BUN/Creatinine Ratio 20.8 (6-22) Glucose 120 H (80-110) mg/dL Calcium 9.7 (8.4-10.2) mg/dL Total Bilirubin 0.5 (0.2-1.3) mg/dL AST 43 H (14-36) IU/L ALT 36 H (<35) IU/L Alkaline Phosphatase 56 (38-126) U/L Total Protein 7.8 (6.3-8.2) g/dL Albumin 4.7 (3.5-5.0) g/dL Globulin 3.1 (1.7-4.1) g/dL Albumin/Globulin Ratio 1.5 (1.0-2.8) Lipase 93 (23-300) U/L Point of care testing: Urine Dip Bedside Urine Glucose Negative Bedside Urine Bilirubin - Negative Bedside Urine Ketone - Negative Urine Specific [place] 1.010 Bedside Urine Occult Blood - Negative Bedside Urine pH 7.5 Bedside Urine Protein - Negative Bedside Urine Urobilinogen - Negative Bedside Urine Nitrite - Negative Bedside Urine Leukocytes - Negative Esterase Imaging Data CT scan - abdomen/pelvis: Radiologist's Impression: Launch?[address] [address] [address] Scan Report Signed Patient: Homa Beyer MR#: [id number] : 1950 Acct:[id number] Age/Sex: 71 / F Date of Service: 04/25/22 Loc: ED Accession Number: [id number] ?? Procedure: CT abdomen pelvis w con Ordering Provider: Wendy Blunt D.O. PROCEDURE:? CT ABDOMEN PELVIS W CON ? INDICATIONS:? Right back pain, radiates but also RLQ pain with palp ? TECHNIQUE:? After the administration of intravenous contrast, axial sections acquired from the lung bases to the pubic symphysis.? Coronal and sagittal reformats were performed.? For radiation dose reduction, the following was used:? automated exposure control, adjustment of mA and/or kV according to patient size.? ? COMPARISON:? None. ? FINDINGS: Image quality:? Excellent.? ? Lung bases:? Lung bases are clear.? Heart size is normal. ? Solid organs:? Liver: The liver has no mass or intrahepatic biliary ductal dilatation. The portal vein and hepatic veins are patent.? The liver has a decreased density consistent with hepatic steatosis. Biliary: The gallbladder has no gallstones, pericholecystic fluid, gallbladder wall thickening, or surrounding inflammatory change. Pancreas: The pancreas has no mass or ductal dilatation. There is no surrounding inflammation. Spleen: Normal size. There are no masses. Adrenals: No hypertrophy or nodules. Kidneys: No obstructive calculus or hydronephrosis.? No solid mass. No cystic mass. ? Peritoneum and bowel:? The distal esophagus and stomach are normal.? The small bowel has a normal caliber and appearance. The terminal ileum is normal. The large bowel has a normal caliber and appearance.? No free fluid or air.? ? Nodes and vessels:? No retroperitoneal or mesenteric adenopathy by size criteria.? Aorta and inferior vena cava are normal in size.? The aorta has atherosclerosis with no aneurysmal dilatation. ? Miscellaneous:? No abdominal wall mass or hernia. ? PELVIS:? Genitourinary:? The bladder has no wall thickening or mass. No bladder calcifications. ? Bones:? No suspicious bony lesions.? No vertebral body compression fractures.? ? IMPRESSION: 1. No acute abdominal or pelvic abnormality. 2. No nephroureterolithiasis. 3. The appendix is not definitively visualized; however there are no secondary findings to suggest acute appendicitis. 4. Hepatic steatosis? ? ? Dictated by: José Villarreal M.D. on 04/25/2022 at 10:41 ? ? Approved by: José Villarreal M.D. on 04/25/2022 at 10:46 MDM Narrative Medical decision making narrative: This is a 71-year-old female with symptoms most consistent with low back pain/sciatica but she is tender in the right lower quadrant even has some radiation to the left lower quadrant with palpation. No hernias appreciated. Plan for labs, imaging she states appendix is still present and not noted to have shingles or rash or skin changes. Patient's imaging does not show any acute changes appendix is not clearly visualized but no secondary findings that would suggest and her examination and active symptoms this also suggest more of a musculoskeletal cause. Negative for infection, white count is slightly low, no other changes on labs visual clear cause for symptoms. Plan For pain control, muscle relaxation follow up with primary care with return precautions. Discharge Plan Departure Patient Disposition: Home Clinical Impression: Sciatica Instructions: DI for Back Pain With Sciatica Activity Restrictions/Additional Instructions: Follow up with your physician for recheck. Your imaging does not show any major changes, your appendix is not easily visualized but there are no secondary changes suggesting an appendicitis today. I suspect her symptoms are more truly related to musculoskeletal and back issues. Do watch for any signs such as rash with red or small blisters running from your back to her anterior abdomen this would suggest shingles and can sometimes occur several days after onset of pain. You may take muscle relaxer 1 tablet every 8 hours as needed. You may take pain medication 1-2 tablets every 6 hours as needed for pain. This medication can make you sleepy do not drive, perform hazardous activities or make any major decisions while taking it. This medication will make you constipated please take a stool softener once to twice daily until stools are soft and regular. Prescription sent to [facility] in [place]. Please return for rapidly worsening symptoms, new weakness, loss of some the station or numbness, loss of bowel or bladder control, fevers, persistent vomiting, rapidly worsening abdominal back or flank pain or other new or concerning symptoms. Prescriptions: New hydrocodone-acetaminophen 5-325 mg tablet 1 tab PO Q6H PRN (Reason: pain) Qty: 10 0RF cyclobenzaprine 10 mg tablet 10 mg PO TID PRN (Reason: muscle spasm) Qty: 10 0RF No Action aspirin 81 MG tablet,chewable 81 mg PO QDAY Qty: 0 0RF multivitamin [Multiple Vitamins] 1 EACH tablet 1 tab PO QDAY Qty: 0 0RF vitamin B complex [B Complex-Vitamin B12] 1 EACH tablet 1 tab PO QDAY Qty: 0 0RF albuterol sulfate [Ventolin HFA] 90 MCG/PUFF HFA aerosol inhaler 2 puff INH Q4HP PRNQty: 1 1RF methocarbamol 750 mg tablet 750 mg PO TID PRN (Reason: spasms) Qty: 30 0RF estradiol 0.01 % (0.1 mg/gram) cream 1 g vaginal .COMPLEX Qty: 42.5 3RF Rx Instructions: Use 1 g vaginally, nightly for 14 nights, then use 2 times weekly. estradiol [Estrace] 1 mg tablet 1 mg PO QWEEK Qty: 12 3RF metoprolol tartrate 25 mg tablet 75 mg PO BID Qty: 540 1RF ascorbate calcium (vitamin C) 500 mg tablet 500 mg PO DAILY 0RF calcium citrate 250 mg calcium tablet 250 mg PO 4XW 0RF Fish Oil See Rx Instructions .ROUTE .COMPLEX 0RF Label Comments: 1 CAP PO HS Rx Instructions: 1 CAP PO HS Turmeric See Rx Instructions .ROUTE .COMPLEX 0RF Label Comments: 1 CAP PO HS Rx Instructions: 1 CAP PO HS Vitamin D3 See Rx Instructions .ROUTE .COMPLEX 0RF Label Comments: 1 CAP PO DAILY Rx Instructions: 1 CAP PO DAILY clobetasol-emollient 0.05 % cream 1 applic TOP .qhs Qty: 15 0RF Referrals: Sweta Torrez DO [Primary Care Provider] -
--- NOTE | 2022-04-25 09:52 | DI.CT.S_ITS ---
PROCEDURE: CT ABDOMEN PELVIS W CON INDICATIONS: Right back pain, radiates but also RLQ pain with palp TECHNIQUE: After the administration of intravenous contrast, axial sections acquired from the lung bases to the pubic symphysis. Coronal and sagittal reformats were performed. For radiation dose reduction, the following was used: automated exposure control, adjustment of mA and/or kV according to patient size. COMPARISON: None. FINDINGS: Image quality: Excellent. Lung bases: Lung bases are clear. Heart size is normal. Solid organs: Liver: The liver has no mass or intrahepatic biliary ductal dilatation. The portal vein and hepatic veins are patent. The liver has a decreased density consistent with hepatic steatosis. Biliary: The gallbladder has no gallstones, pericholecystic fluid, gallbladder wall thickening, or surrounding inflammatory change. Pancreas: The pancreas has no mass or ductal dilatation. There is no surrounding inflammation. Spleen: Normal size. There are no masses. Adrenals: No hypertrophy or nodules. Kidneys: No obstructive calculus or hydronephrosis. No solid mass. No cystic mass. Peritoneum and bowel: The distal esophagus and stomach are normal. The small bowel has a normal caliber and appearance. The terminal ileum is normal. The large bowel has a normal caliber and appearance. No free fluid or air. Nodes and vessels: No retroperitoneal or mesenteric adenopathy by size criteria. Aorta and inferior vena cava are normal in size. The aorta has atherosclerosis with no aneurysmal dilatation. Miscellaneous: No abdominal wall mass or hernia. PELVIS: Genitourinary: The bladder has no wall thickening or mass. No bladder calcifications. Bones: No suspicious bony lesions. No vertebral body compression fractures. IMPRESSION: 1. No acute abdominal or pelvic abnormality. 2. No nephroureterolithiasis. 3. The appendix is not definitively visualized; however there are no secondary findings to suggest acute appendicitis. 4. Hepatic steatosis Dictated by: José Villarreal M.D. on 04/25/2022 at 10:41 Approved by: José Villarreal M.D. on 04/25/2022 at 10:46
[2022-04-25 10:00] LABS: Add Manual Diff / Slide Review NO; Basophils Absolute Auto 100 /uL (0-100); Basophils Percent Auto 2.8 % (0-2); Eosinophils Absolute Auto 100 /uL (0-450); Eosinophils Percent Auto 1.5 % (2-4); Hemoglobin 12.9 g/dL (12.0-16.0); Lymphocytes Absolute Auto 1400 /uL (1100-4500); Lymphocytes Percent Auto 33.8 % (25-40); Mean Corpuscular Hemoglobin 33.5 PG (26-34); Mean Corpuscular Volume 95.8 fL (80-100); Monocytes Absolute Auto 300 /uL (0-900); Monocytes Percent Auto 7.3 % (3-14); Neutrophils Absolute Auto 2200 /uL (1500-7000); Neutrophils Percent Auto 54.6 % (50-75); Platelet Count 195 X10^3/uL (150-400); Red Blood Cell Count 3.86 X10^6/uL (4.0-5.2); Red Cell Distribution Width 13.3 % (11.6-14.8)
[2022-04-25 10:04] LABS: Alanine Aminotransferase 36 IU/L (<35); Albumin 4.7 g/dL (3.5-5.0); Albumin Globulin Ratio 1.5 (1.0-2.8); Alkaline Phosphatase 56 U/L (38-126); Aspartate Aminotransferase 43 IU/L (14-36); BUN Creatinine Ratio 20.8 (6-22); Bilirubin Total 0.5 mg/dL (0.2-1.3); Blood Urea Nitrogen 15 mg/dL (7-17); Calcium 9.7 mg/dL (8.4-10.2); Carbon Dioxide 28 mmol/L (22-32); Chloride 108 mmol/L (98-107); Estimated Glomerular Filt Rate > 60 mL/min (>60); Globulin 3.1 g/dL (1.7-4.1); Glucose 120 mg/dL (80-110); HEMOLYSIS < 15 (0-50); Lipase 93 U/L (23-300); Potassium 4.3 mmol/L (3.4-5.1); Sodium 142 mmol/L (137-145); Total Protein 7.8 g/dL (6.3-8.2)
[2022-04-25] MEDS: KETOROLAC 30 MG/ML VIAL 15 MG IV (10:12)
[2022-04-25] MEDS: SODIUM CHLORIDE 0.9% 1,000 ML 150 ML IV (10:13)
== END 2022-04-25 12:33 | disposition home or self-care (01) ==
PROVIDERS: Emergency Provider Emergency Medicine; PCP Family Medicine; Referring Provider Student in an Organized Health Care Education/Training Program
DX: M54.30 Sciatica, unspecified side (principal); R10.31 Right lower quadrant pain
CPT/HCPCS: 74177; 80053; 81003; 83690; 85025; 96374; 99284; J1885; Q9967

== ENCOUNTER → 2022-04-28 14:20 | Outpatient (CLI) | payer OTHER, SELFPAY ==
--- NOTE | 2022-04-28 14:21 | DI.RAD.S_ITS ---
PROCEDURE: XR HIP W PEL IF DONE RT 2V INDICATIONS: right hip pain TECHNIQUE: AP pelvis with lateral view(s) of the right hip(s). COMPARISON: None. FINDINGS: Bones: No fractures or dislocations. Pelvic ring appears intact. No suspicious bony lesions. Soft tissues: The visualized bowel gas pattern is normal. No suspicious soft tissue calcifications. IMPRESSION: No osseous lesion. If symptoms and/or clinical suspicion for pathology persists, further assessment with repeat radiographs (7-10 days) or advanced imaging (e.g. CT, MRI or bone scan) should be considered. Dictated by: Jana Aguilar MD, PhD on 04/28/2022 at 15:35 Approved by: Jana Aguilar MD, PhD on 04/28/2022 at 15:36
== END ==
PROVIDERS: PCP Family Medicine; Referring Provider Family Medicine; Visit Provider Family Medicine
DX: M25.551 Pain in right hip (principal)
CPT/HCPCS: 73502

== ENCOUNTER → 2022-05-13 12:54 | Outpatient (CLI) | payer OTHER, SELFPAY ==
--- NOTE | 2022-05-13 12:55 | DI.MRI.S_ITS ---
PROCEDURE: MR LUMBAR SPINE WO CON INDICATIONS: right leg weakness TECHNIQUE: Noncontrast sagittal T1 spin echo and T2 fast echo, sagittal STIR, and T2 fast spin echo through the lumbar spine. In cases with scoliosis, additional coronal T2 fast spin echo may be performed. COMPARISON: [facility], CT, CT ABDOMEN PELVIS W CON, 04/25/2022, 10:10. FINDINGS: Image quality: Excellent. Alignment and Curvature: There is normal bony alignment. Bone Marrow: Marrow is of normal overall signal. No acute vertebral body compression fractures. Spinal Cord: Conus medullaris terminates at the L1 level. Visualized cord demonstrates normal signal and size. Paraspinous Soft Tissues: No paravertebral masses. T12-L1: Disc desiccation is seen. No significant disc bulge, canal stenosis or neural foraminal narrowing. L1-L2: There is disc desiccation and mild degenerative endplate changes. No significant disc bulge, canal stenosis or neural foraminal narrowing. L2-L3: Disc desiccation and slight loss of disc height is seen. Diffuse disc bulge and bilateral facet arthrosis with hypertrophy of ligamentum flavum is seen causing mild central canal stenosis and [id number] bilateral neural foraminal narrowing slightly worse on the right side. L3-L4: Disc desiccation and loss of disc height is seen. Broad-based disc bulge and bilateral facet arthrosis with hypertrophy of ligamentum flavum is seen with moderate central canal stenosis and moderate right worse than left bilateral neural foraminal narrowing. At bulging disc is seen contacting exiting right L3 nerve root. L4-L5: There is loss of disc height and disc desiccation. Broad-based disc bulge and bilateral facet arthrosis is seen with [id number] central canal stenosis and moderate right-sided neural foraminal narrowing. No significant left-sided neural foraminal narrowing. L5-S1: Disc desiccation and loss of disc height is seen. Broad-based disc bulge and bilateral facet arthrosis is seen with moderate right-sided neural foraminal narrowing and mild left-sided neural foraminal narrowing. IMPRESSION: 1. Degenerative disc bulge and bilateral facet arthrosis throughout lumbar spine causing [id number] central canal stenosis and right worse than left bilateral neural foraminal narrowing as described above. 2. No marrow edema. No compression fracture or spondylolisthesis. Dictated by: Harrison Wilhelm M.D. on 05/13/2022 at 14:32 Approved by: Harrison Wilhelm M.D. on 05/13/2022 at 14:35
== END ==
PROVIDERS: PCP Family Medicine; Referring Provider Family Medicine; Visit Provider Family Medicine
DX: R29.898 Other symptoms and signs involving the musculoskeletal system (principal); M51.26 Other intervertebral disc displacement, lumbar region; M51.27 Other intervertebral disc displacement, lumbosacral region; M47.816 Spondylosis without myelopathy or radiculopathy, lumbar region; M47.817 Spondylosis without myelopathy or radiculopathy, lumbosacral region; M48.061 Spinal stenosis, lumbar region without neurogenic claudication; M48.07 Spinal stenosis, lumbosacral region
CPT/HCPCS: 72148

== ENCOUNTER → 2022-07-11 14:05 | Outpatient (CLI) | payer OTHER, SELFPAY ==
--- NOTE | 2022-07-11 14:06 | DI.MG.S_ITS ---
BILATERAL DIGITAL SCREENING MAMMOGRAM 3D/2D WITH CAD: 07/11/2022 CLINICAL: Routine screening. Comparison is made to exams dated: 06/19/2021 mammogram, 05/14/2020 mammogram, 05/10/2019 mammogram, and 05/09/2018 mammogram - [facility]. There are scattered fibroglandular elements in both breasts. Current study was also evaluated with a Computer Aided Detection (CAD) system. There are mole markers on the right breast. No significant masses, calcifications, or other findings are seen in either breast. There has been no significant interval change. IMPRESSION: NEGATIVE There is no mammographic evidence of malignancy. A 1 year screening mammogram is recommended. Based on the Tyrer Cuzick model (a risk assessment model) the patient's lifetime risk is 2.2% and her 10 year risk is 2.0%. According to the ACR, ACS, and NCCN guidelines, an annual breast MRI exam along with mammogram is recommended if the patient's lifetime risk is 20% or greater. This exam was interpreted at Station ID: [id number]. NOTE: For mammograms, a report in lay terms will be sent to the patient. Approximately 15% of breast malignancies will not be visualized mammographically. In the management of a palpable breast mass, a negative mammogram must not discourage biopsy of a clinically suspicious lesion. Electronically Signed By: Tonny moody/eve:07/11/2022 15:09:57 letter sent: Normal Exam ACR BI-RADS Category 1: Negative [id number]
== END ==
PROVIDERS: PCP Family Medicine; Referring Provider Family Medicine; Visit Provider Family Medicine
DX: Z12.31 Encounter for screening mammogram for malignant neoplasm of breast (principal)
CPT/HCPCS: 77063; 77067

== ENCOUNTER 2022-08-15 09:44 | Emergency (ER) | payer OTHER, SELFPAY ==
[2022-08-15] VITALS (14 sets, daily range): BP systolic 131–199; BP diastolic 62–80; PULSE 49–70; RESP 14–21; TEMP 36.3; O2SAT 89–99; BMI 34.3
--- NOTE | 2022-08-15 09:57 | DI.RAD.S_ITS ---
PROCEDURE: XR CHEST 1V INDICATIONS: chest pain TECHNIQUE: One view of the chest was acquired. COMPARISON: [facility], , CHEST 2 VIEW, 03/16/2018, 14:06. FINDINGS: Surgical changes and devices: None. Lungs and pleura: Lungs are clear. No pleural effusions or pneumothorax. Mediastinum: Mediastinal contours appear normal. Heart size is normal. Bones and chest wall: No suspicious bony lesions. Overlying soft tissues appear unremarkable. IMPRESSION: No acute cardiopulmonary disease. Dictated by: Danica Claire M.D. on 08/15/2022 at 10:48 Approved by: Danica Claire M.D. on 08/15/2022 at 10:48
[2022-08-15] MEDS: ASPIRIN 81 MG CHEW TAB 324 MG PO (10:00)
[2022-08-15 10:25] LABS: Add Manual Diff / Slide Review NO; Basophils Absolute Auto 0 /uL (0-100); Basophils Percent Auto 0.9 % (0-2); Eosinophils Absolute Auto 100 /uL (0-450); Eosinophils Percent Auto 1.9 % (2-4); Hematocrit 36.2 % (36-46); Hemoglobin 12.7 g/dL (12.0-16.0); Lymphocytes Absolute Auto 1300 /uL (1100-4500); Lymphocytes Percent Auto 27.7 % (25-40); Mean Corpuscular HGB Conc 35.2 % (30-36); Mean Corpuscular Hemoglobin 33.8 PG (26-34); Mean Corpuscular Volume 95.9 fL (80-100); Monocytes Absolute Auto 400 /uL (0-900); Monocytes Percent Auto 8.8 % (3-14); Neutrophils Absolute Auto 2800 /uL (1500-7000); Neutrophils Percent Auto 60.7 % (50-75); Platelet Count 178 X10^3/uL (150-400); Red Blood Cell Count 3.77 X10^6/uL (4.0-5.2); Red Cell Distribution Width 13.6 % (11.6-14.8); White Blood Cell Count 4.6 X10^3/uL (4.5-11.0)
[2022-08-15 10:35] LABS: Creatine Kinase 198 U/L (30-135)
[2022-08-15 10:48] LABS: Troponin I < 0.012 ng/mL (0.01-0.034)
[2022-08-15 10:51] LABS: Creatine Kinase MB 2.04 ng/mL (<2.37)
--- NOTE | 2022-08-15 11:09 | ED.CHESTPAIN ---
HPI - Chest Pain General Chief Complaint: Chest Pain Stated Complaint: pain in L arm, heart issues, jaw pain Time Seen by Provider: 08/15/22 09:56 Source: patient Mode of arrival: Ambulatory Limitations: no limitations History of Present Illness HPI narrative: Patient is a 72-year-old female. He states that for the past several weeks she has had episodes at night when her Apple watch was telling her that her heart rate was low. She reports she is been asymptomatic from this. She is on metoprolol. She also states that the past couple weeks she has had some tingling in her left arm. She also states she was having some left jaw discomfort but that is gone. No specific chest pain. No shortness of breath. She did have a mother who had heart attack in her late 40s. Patient states she thinks she is had a stress test in the past but that was many years ago. She talked to a friend of hers who is a physician who told her that she should have her re-evaluated. Related Data Home Medications Medication Instructions Recorded Confirmed aspirin 81 mg chewable tablet 81 mg PO QDAY ##0 03/20/17 08/02/22 multivitamin (Multiple Vitamins 1 tab PO QDAY ##0 03/16/18 04/28/22 tablet) vitamin B complex (B 1 tab PO QDAY ##0 03/16/18 04/28/22 Complex-Vitamin B12 tablet) Fish Oil See Rx Instructions .Route .COMPLEX 07/08/19 04/28/22 Turmeric See Rx Instructions .Route .COMPLEX 07/08/19 04/28/22 Vitamin D3 See Rx Instructions .Route .COMPLEX 07/08/19 04/28/22 ascorbate calcium (vitamin C) 500 500 mg PO DAILY 07/08/19 08/02/22 mg tablet calcium citrate 250 mg PO 4XW 07/08/19 04/28/22 Previous Rx's Medication Instructions Recorded methocarbamol 750 mg tablet 750 mg PO TID PRN spasms #30 tabs 01/26/21 estradiol 1 mg tablet (Estrace) 1 mg PO QWEEK #12 tabs 04/12/22 metoprolol tartrate 25 mg tablet 75 mg PO BID #540 tabs 04/12/22 cyclobenzaprine 10 mg tablet 10 mg PO TID PRN muscle spasm #10 04/25/22 tabs hydrocodone 5 mg-acetaminophen 325 1 tab PO Q6H PRN pain #10 tabs 04/25/22 mg tablet clobetasol 0.05 % topical ointment 1 applic topical BID #45 grams 08/02/22 lisinopril 10 mg tablet 10 mg PO DAILY #30 tabs 08/15/22 Allergies Allergy/AdvReac Type Severity Reaction Status Date / Time crab [CRAB] Allergy Severe Swollen Verified 08/02/22 16:06 throat benzonatate AdvReac Intermediate Patient Verified 08/02/22 16:06 [From Jose Antonio Kramer] can't remember guaifenesin [GUAIFENESIN] AdvReac Unknown Patient Verified 08/02/22 16:06 can't remember Review of Systems Constitutional Constitutional: Reports system reviewed and no additional complaints, except as documented Cardiovascular Cardiovascular: Reports as per HPI and Reports system reviewed and no additional complaints, except as documented Respiratory Respiratory: Reports as per HPI and Reports system reviewed and no additional complaints, except as documented Gastrointestinal Gastrointestinal: Reports as per HPI and Reports system reviewed and no additional complaints, except as documented Musculoskeletal Musculoskeletal: Reports system reviewed and no additional complaints, except as documented Integumentary/Breasts Skin/Breast: Reports system reviewed and no additional complaints, except as documented Neurologic Neurologic: Reports system reviewed and no additional complaints, except as documented Hematologic/Lymphatic On Anticoagulants: No Patient History Medical History Anemia Anxiety Cataracts, bilateral Chicken pox Chronic back pain Depression Dry skin Eczema (~1974) Endometriosis (~1987) GERD (gastroesophageal reflux disease) Heavy menstrual period (~1959) Hemorrhoid History of liver disease History of urinary incontinence (~2017) Hyperlipidemia Hyperlipidemia Hypertension Measles Mumps Neutropenia (~1999) Restless leg syndrome (~1974) Sleep apnea Transaminitis Transient ischemic attack Surgical History Anesthesia History of tonsillectomy (~1949) Status post hysterectomy (~1987) Family History Brother Mental health problem Mother Heart disease Father Diabetes mellitus Social History Smoking Status: Former smoker Tobacco: How many years used: 2 second hand exposure: No alcohol intake: current (wine or micheline once in a while socially.) substance use type: does not use Smoking Status: Former smoker Exam Initial Vital Signs Initial Vital Signs: Vital Signs Temperature 97.4 F L 08/15/22 09:45 Pulse Rate 70 08/15/22 09:45 Respiratory Rate 18 08/15/22 09:45 Blood Pressure 131/62 08/15/22 09:45 Pulse Oximetry 96 08/15/22 09:45 Oxygen Delivery Method 08/15/22 09:45 HENMT Head: normal to inspection and normocephalic Resp Effort & Inspection: normal respiratory effort Auscultation: clear to auscultation bilaterally Cardio Rate: regular rate Rhythm: regular rhythm GI Inspection: normal to inspection Skin General: no rashes or lesions noted Neuro General: patient alert, patient awake, patient oriented x3 and moves all extremities Speech: speech normal Gait: normal gait Extrem General: normal to inspection, capillary refill normal and No edema Psych Appearance: grossly normal and well kempt Scores HEART Score Heart Score history: Slightly Suspicious Heart Score EKG: Normal Heart Score Age: > or = 65 years old Heart Score risk factors: 1-2 risk factors Heart Score troponin: < or = to normal limit Heart Score Total: 3 Course Orders Ordered: ED Orders 08/15/22 09:57 XR chest 1V Stat EKG-12 Lead Stat 08/15/22 10:09 Complete Blood Count AUTO DIFF Stat Troponin & CK Cardiac Panel Stat 08/15/22 12:04 Comprehensive Metabolic Panel Stat Lipase Stat Magnesium Stat Troponin I Stat Discontinued Medications Aspirin (Aspirin 81 Mg Chew Tab) 324 mg PO NOW ONE Stop: 08/15/22 09:58 Last Admin: 08/15/22 10:00 Dose: 324 mg Documented By: BHAVIK Vital Signs Vital signs: Vital Signs - 8 hr 08/15/22 09:45 08/15/22 10:18 08/15/22 10:30 Temperature 97.4 F L Pulse Rate 70 60 57 L Respiratory Rate 18 18 18 Blood Pressure 131/62 Pulse Oximetry 96 97 96 Oxygen Delivery Method Room Air 08/15/22 10:33 08/15/22 10:33 08/15/22 10:35 Temperature Pulse Rate 55 L 55 L Respiratory Rate 18 Blood Pressure 180/76 H Pulse Oximetry 95 96 Oxygen Delivery Method 08/15/22 10:35 08/15/22 11:00 08/15/22 11:00 Temperature Pulse Rate 57 L Respiratory Rate 18 Blood Pressure 186/80 H 199/80 H Pulse Oximetry 95 Oxygen Delivery Method 08/15/22 11:30 08/15/22 11:31 08/15/22 11:31 Temperature Pulse Rate 53 L 53 L Respiratory Rate Blood Pressure 183/76 H Pulse Oximetry 98 97 Oxygen Delivery Method 08/15/22 12:00 08/15/22 12:01 08/15/22 12:01 Temperature Pulse Rate 56 L 55 L Respiratory Rate Blood Pressure 194/80 H Pulse Oximetry 99 96 Oxygen Delivery Method 08/15/22 12:32 08/15/22 12:41 08/15/22 12:41 Temperature Pulse Rate 60 54 L Respiratory Rate 21 Blood Pressure 175/73 H Pulse Oximetry 89 L 98 Oxygen Delivery Method 08/15/22 13:00 08/15/22 13:01 08/15/22 13:01 Temperature Pulse Rate 50 L 49 L Respiratory Rate 14 16 Blood Pressure 180/76 H Pulse Oximetry 96 96 Oxygen Delivery Method MDM - Chest Pain Lab Data Attestation: I reviewed the patient's lab results. Result diagrams: 08/15/22 10:09 08/15/22 12:04 Labs: Lab Results 08/15/22 08/15/22 08/15/22 Range/Units 10:09 10:09 12:04 WBC 4.6 (4.5-11.0) X10^3/uL RBC 3.77 L (4.0-5.2) X10^6/uL Hgb 12.7 (12.0-16.0) g/dL Hct 36.2 (36-46) % MCV 95.9 (80-100) fL MCH 33.8 (26-34) PG MCHC 35.2 (30-36) % RDW 13.6 (11.6-14.8) % Plt Count 178 (150-400) X10^3/uL Neut % (Auto) 60.7 (50-75) % Lymph % (Auto) 27.7 (25-40) % [place] % (Auto) 8.8 (3-14) % Eos % (Auto) 1.9 L (2-4) % Baso % (Auto) 0.9 (0-2) % Neut # (Auto) 2800 (4197-0163) /uL Lymph # (Auto) 1300 (4349-1723) /uL [place] # (Auto) 400 (0-900) /uL Eos # (Auto) 100 (0-450) /uL Baso # (Auto) 0 (0-100) /uL Sodium 141 (137-145) mmol/L Potassium 4.2 (3.4-5.1) mmol/L Chloride 105 (98-107) mmol/L Carbon Dioxide 28 (22-32) mmol/L BUN 17 (7-17) mg/dL Creatinine 0.71 (0.52-1.04) mg/dL Estimated GFR > 60 (>60) mL/min BUN/Creatinine Ratio 23.9 H (6-22) Glucose 104 (80-110) mg/dL Calcium 9.6 (8.4-10.2) mg/dL Magnesium 1.9 (1.6-2.3) mg/dL Total Bilirubin 0.4 (0.2-1.3) mg/dL AST 32 (14-36) IU/L ALT 32 (<35) IU/L Alkaline Phosphatase 62 (38-126) U/L Total Creatine Kinase 198 H Cancelled (30-135) U/L CK-MB (CK-2) 2.04 Cancelled (<2.37) ng/mL CK-MB (CK-2) Rel Index 1.0 L Cancelled (1.5-5.0) % Troponin I < 0.012 Cancelled (0.01-0.034) ng/mL Total Protein 7.6 (6.3-8.2) g/dL Albumin 4.4 (3.5-5.0) g/dL Globulin 3.2 (1.7-4.1) g/dL Albumin/Globulin Ratio 1.4 (1.0-2.8) Lipase 115 (23-300) U/L 08/15/22 Range/Units 12:04 WBC (4.5-11.0) X10^3/uL RBC (4.0-5.2) X10^6/uL Hgb (12.0-16.0) g/dL Hct (36-46) % MCV (80-100) fL MCH (26-34) PG MCHC (30-36) % RDW (11.6-14.8) % Plt Count (150-400) X10^3/uL Neut % (Auto) (50-75) % Lymph % (Auto) (25-40) % [place] % (Auto) (3-14) % Eos % (Auto) (2-4) % Baso % (Auto) (0-2) % Neut # (Auto) (7134-2166) /uL Lymph # (Auto) (8217-8331) /uL [place] # (Auto) (0-900) /uL Eos # (Auto) (0-450) /uL Baso # (Auto) (0-100) /uL Sodium (137-145) mmol/L Potassium (3.4-5.1) mmol/L Chloride (98-107) mmol/L Carbon Dioxide (22-32) mmol/L BUN (7-17) mg/dL Creatinine (0.52-1.04) mg/dL Estimated GFR (>60) mL/min BUN/Creatinine Ratio (6-22) Glucose (80-110) mg/dL Calcium (8.4-10.2) mg/dL Magnesium (1.6-2.3) mg/dL Total Bilirubin (0.2-1.3) mg/dL AST (14-36) IU/L ALT (<35) IU/L Alkaline Phosphatase (38-126) U/L Total Creatine Kinase (30-135) U/L CK-MB (CK-2) (<2.37) ng/mL CK-MB (CK-2) Rel Index (1.5-5.0) % Troponin I < 0.012 (0.01-0.034) ng/mL Total Protein (6.3-8.2) g/dL Albumin (3.5-5.0) g/dL Globulin (1.7-4.1) g/dL Albumin/Globulin Ratio (1.0-2.8) Lipase (23-300) U/L Imaging Data Chest x-ray: Radiologist's Impression: [address] [address] XRay Report Signed Patient: Homa Beyer MR#: [id number] : 1950 Acct:[id number] Age/Sex: 72 / F Date of Service: 08/15/22 Loc: ED Accession Number: [id number] ?? Procedure: XR chest 1V Ordering Provider: Lenard Le D.O. PROCEDURE:? XR CHEST 1V ? INDICATIONS:? chest pain ? TECHNIQUE:? One view of the chest was acquired.? ? COMPARISON:? [facility], , CHEST 2 VIEW, 03/16/2018, 14:06. ? FINDINGS:? ? Surgical changes and devices:? None.? ? Lungs and pleura:? Lungs are clear.? No pleural effusions or pneumothorax.? ? Mediastinum:? Mediastinal contours appear normal.? Heart size is normal.? ? Bones and chest wall:? No suspicious bony lesions.? Overlying soft tissues appear unremarkable.? ? IMPRESSION:? No acute cardiopulmonary disease.? ? ? Dictated by: Danica Claire M.D. on 08/15/2022 at 10:48 ? ? Approved by: Danica Claire M.D. on 08/15/2022 at 10:48?? ECG Data Attestation: I personally reviewed and interpreted this ECG as follows: Interpretation: Sinus rhythm Ventricular rate is 63 Normal axis Normal QRS Normal QTC No ST T wave changes MDM Narrative Medical decision making narrative: Patient arrived not specifically with chest pain but potential chest pain equivalents with the left arm pain and jaw pain. Her EKG is unremarkable. Troponins are negative x2. Chest x-ray is unremarkable. Low risk heart score. Patient did have a heart rate in the 50s and she states that at night she occasionally gets noticed by her Apple watch that her heart rates in the 40s. It seems she is relatively asymptomatic from this. She is on 75 mg metoprolol 2 times a day. Patient is also hypertensive. She did not take her blood pressure medication this morning prior to arrival. I had a discussion with her regarding her symptoms. Informed her that she did need to talk with her primary doctor about the indications for stress test. We also discussed her bradycardia could potentially be because of the metoprolol so she was on. The plan will be is to have her continue to take her metoprolol the morning however we will switch her night metoprolol to lisinopril. I did send an e-mail to her primary doctor stating the plan. Once again I informed the patient that she should call her primary doctor for follow-up. She was given return precautions. She expressed understanding and agreement Discharge Plan Departure Patient Disposition: Home Clinical Impression: Hypertension, Bradycardia Instructions: High Blood Pressure, DI for Bradycardia Activity Restrictions/Additional Instructions: I do recommend that you talk with your primary doctor about the indications for outpatient stress testing. The plan will be is to have you continue to take your 75 mg of metoprolol in the morning however I will have you stop the 75 mg in the evening. We are going to add lisinopril in the evening. This was sent to [facility]. Contact your primary doctor for follow-up. Return to the emergency department for any new or worsening symptoms. Prescriptions: New lisinopril 10 mg tablet 10 mg PO DAILY Qty: 30 0RF No Action aspirin 81 MG tablet,chewable 81 mg PO QDAY Qty: 0 multivitamin [Multiple Vitamins] 1 EACH tablet 1 tab PO QDAY Qty: 0 vitamin B complex [B Complex-Vitamin B12] 1 EACH tablet 1 tab PO QDAY Qty: 0 methocarbamol 750 mg tablet 750 mg PO TID PRN (Reason: spasms) Qty: 30 0RF estradiol [Estrace] 1 mg tablet 1 mg PO QWEEK Qty: 12 3RF metoprolol tartrate 25 mg tablet 75 mg PO BID Qty: 540 1RF ascorbate calcium (vitamin C) 500 mg tablet 500 mg PO DAILY calcium citrate 250 mg calcium tablet 250 mg PO 4XW Fish Oil See Rx Instructions .ROUTE .COMPLEX Label Comments: 1 CAP PO HS Rx Instructions: 1 CAP PO HS Turmeric See Rx Instructions .ROUTE .COMPLEX Label Comments: 1 CAP PO HS Rx Instructions: 1 CAP PO HS Vitamin D3 See Rx Instructions .ROUTE .COMPLEX Label Comments: 1 CAP PO DAILY Rx Instructions: 1 CAP PO DAILY clobetasol 0.05 % ointment 1 applic topical BID Qty: 45 1RF Rx Instructions: for 4 weeks then continue daily. Apply a thin amount to entire vulvar area hydrocodone-acetaminophen 5-325 mg tablet 1 tab PO Q6H PRN (Reason: pain) Qty: 10 0RF cyclobenzaprine 10 mg tablet 10 mg PO TID PRN (Reason: muscle spasm) Qty: 10 0RF Referrals: Sweta Torrez DO [Primary Care Provider] - Visit Report Forms: Patient Portal/API
--- NOTE | 2022-08-15 12:15 | PC.NURSE ---
Patient taking home Blood pressure medication, Ok per DR Le
[2022-08-15 12:33] LABS: Alanine Aminotransferase 32 IU/L (<35); Albumin 4.4 g/dL (3.5-5.0); Albumin Globulin Ratio 1.4 (1.0-2.8); Alkaline Phosphatase 62 U/L (38-126); Aspartate Aminotransferase 32 IU/L (14-36); BUN Creatinine Ratio 23.9 (6-22); Bilirubin Total 0.4 mg/dL (0.2-1.3); Blood Urea Nitrogen 17 mg/dL (7-17); Calcium 9.6 mg/dL (8.4-10.2); Carbon Dioxide 28 mmol/L (22-32); Chloride 105 mmol/L (98-107); Estimated Glomerular Filt Rate > 60 mL/min (>60); Globulin 3.2 g/dL (1.7-4.1); Glucose 104 mg/dL (80-110); HEMOLYSIS < 15 (0-50); Lipase 115 U/L (23-300); Magnesium 1.9 mg/dL (1.6-2.3); Potassium 4.2 mmol/L (3.4-5.1); Sodium 141 mmol/L (137-145); Total Protein 7.6 g/dL (6.3-8.2)
[2022-08-15 12:44] LABS: Troponin I < 0.012 ng/mL (0.01-0.034)
== END 2022-08-15 13:10 | disposition home or self-care (01) ==
PROVIDERS: Emergency Provider Emergency Medicine; PCP Family Medicine
DX: I10 Essential (primary) hypertension (principal); R00.1 Bradycardia, unspecified; R07.9 Chest pain, unspecified
CPT/HCPCS: 36415; 71045; 80053; 82550; 82553; 83690; 83735; 84484; 85025; 93005; 93010; 99284

== ENCOUNTER → 2023-07-05 12:38 | Outpatient (CLI) | payer OTHER, SELFPAY ==
--- NOTE | 2023-07-05 12:40 | DI.RAD.S_ITS ---
PROCEDURE: XR HIP W PEL IF DONE RUY MIN 4V INDICATIONS: Bilateral hip pain - suspect Osteoarthritis TECHNIQUE: AP pelvis with lateral view(s) of the bilateral hip(s). COMPARISON: [facility], , XR HIP W PEL IF DONE RT 2V, 04/28/2022, 14:15. FINDINGS: Bones: No fractures or dislocations. Pelvic ring appears intact. No suspicious bony lesions. Mild bilateral hip joint space narrowing greater on the left. No marginal osteophyte or remodeling. Both femoral heads have an appropriate contour. Lower lumbar spine unremarkable Soft tissues: The visualized bowel gas pattern is normal. No suspicious soft tissue calcifications. IMPRESSION: Mild bilateral hip joint space narrowing without remodeling. Approved by: Kong Wells M.D. on 07/05/2023 at 18:10
== END ==
PROVIDERS: PCP Physician Assistant; Referring Provider Physician Assistant; Visit Provider Physician Assistant
DX: M25.551 Pain in right hip (principal); M25.552 Pain in left hip
CPT/HCPCS: 73522

== ENCOUNTER → 2023-07-11 11:30 | Outpatient (CLI) | payer OTHER, SELFPAY ==
[2023-07-11 12:53] LABS: Add Manual Diff / Slide Review NO; Basophils Absolute Auto 0 /uL (0-100); Basophils Percent Auto 0.6 % (0-2); Eosinophils Absolute Auto 100 /uL (0-450); Eosinophils Percent Auto 1.7 % (2-4); Hematocrit 38.2 % (36-46); Hemoglobin 13.3 g/dL (12.0-16.0); Lymphocytes Absolute Auto 1100 /uL (1100-4500); Lymphocytes Percent Auto 34.6 % (25-40); Mean Corpuscular HGB Conc 34.8 % (30-36); Mean Corpuscular Volume 94.7 fL (80-100); Monocytes Absolute Auto 300 /uL (0-900); Monocytes Percent Auto 9.2 % (3-14); Neutrophils Absolute Auto 1800 /uL (1500-7000); Neutrophils Percent Auto 53.9 % (50-75); Platelet Count 211 X10^3/uL (150-400); Red Blood Cell Count 4.03 X10^6/uL (4.0-5.2); Red Cell Distribution Width 13.6 % (11.6-14.8); White Blood Cell Count 3.3 X10^3/uL (4.5-11.0)
[2023-07-11 13:11] LABS: HEMOLYSIS < 15 (0-50); Iron 88 ug/dL (37-170)
[2023-07-11 13:18] LABS: Alanine Aminotransferase 27 IU/L (<35); Albumin 4.7 g/dL (3.5-5.0); Albumin Globulin Ratio 1.7 (1.0-2.8); Alkaline Phosphatase 61 U/L (38-126); Aspartate Aminotransferase 32 IU/L (14-36); Bilirubin Total 0.6 mg/dL (0.2-1.3); Blood Urea Nitrogen 14 mg/dL (7-17); Calcium 10.1 mg/dL (8.4-10.2); Carbon Dioxide 29 mmol/L (22-32); Chloride 103 mmol/L (98-107); Cholesterol 229 mg/dL (140-199); Estimated Glomerular Filt Rate > 60 mL/min (>60); Globulin 2.8 g/dL (1.7-4.1); Glucose 111 mg/dL (80-110); HDL Cholesterol 55 mg/dL (40-60); HEMOLYSIS < 15 (0-50); LDL Cholesterol Calculated 147 mg/dL (<100); Potassium 5.1 mmol/L (3.4-5.1); Sodium 141 mmol/L (137-145); Total Protein 7.5 g/dL (6.3-8.2); Triglycerides 136 mg/dL (35-150)
[2023-07-11 13:22] LABS: Percent Iron Saturation 28 % (15-50); Total Iron Binding Capacity 310 ug/dL (265-497); Transferrin 239 mg/dL (206-381)
[2023-07-11 13:43] LABS: TSH w/ Reflex to FT4 2.67 uIU/mL (0.47-4.68)
[2023-07-11 13:47] LABS: Ferritin 159 ng/mL (11-264)
[2023-07-11 14:01] LABS: Vitamin B12 674 pg/mL (239-931)
[2023-07-11 17:27] LABS: Creatinine Urine Random 201.2 mg/dL; Microalbumi Creatinin Ratio Ur 5.9 ug/mg CR (<30); Microalbumin Urine Random 1.2 mg/dL (0-1.6)
== END ==
PROVIDERS: PCP Physician Assistant; Referring Provider Physician Assistant; Visit Provider Physician Assistant
DX: E78.5 Hyperlipidemia, unspecified (principal); M25.50 Pain in unspecified joint; I10 Essential (primary) hypertension; M25.552 Pain in left hip; M25.551 Pain in right hip; R53.83 Other fatigue; R74.01 Elevation of levels of liver transaminase levels
CPT/HCPCS: 36415; 80053; 80061; 82043; 82570; 82607; 82728; 83540; 83550; 84443; 85025

== ENCOUNTER → 2023-07-14 09:03 | Outpatient (CLI) | payer OTHER, SELFPAY ==
[2023-07-17 16:53] LABS: Fecal Immunochemical Test Negative (Negative)
== END ==
PROVIDERS: PCP Physician Assistant; Referring Provider Physician Assistant; Visit Provider Physician Assistant
DX: Z12.11 Encounter for screening for malignant neoplasm of colon (principal)
CPT/HCPCS: 82274

== ENCOUNTER → 2024-07-22 09:33 | Outpatient (CLI) | payer OTHER, SELFPAY ==
[2024-07-22 10:33] LABS: Alanine Aminotransferase 31 IU/L (<35); Albumin 4.7 g/dL (3.5-5.0); Albumin Globulin Ratio 1.7 (1.0-2.8); Alkaline Phosphatase 69 U/L (38-126); Aspartate Aminotransferase 38 IU/L (14-36); BUN Creatinine Ratio 17.4 (6-22); Bilirubin Total 0.7 mg/dL (0.2-1.3); Blood Urea Nitrogen 12 mg/dL (7-17); Carbon Dioxide 27 mmol/L (22-32); Chloride 107 mmol/L (98-107); Estimated Glomerular Filt Rate > 60 mL/min (>60); Globulin 2.8 g/dL (1.7-4.1); Glucose 115 mg/dL (80-110); HEMOLYSIS < 15 (0-50); Potassium 4.7 mmol/L (3.4-5.1); Sodium 141 mmol/L (137-145); Total Protein 7.5 g/dL (6.3-8.2)
[2024-07-22 10:46] LABS: LDL Cholesterol Direct 123 mg/dL (<100)
[2024-07-22 17:37] LABS: Hep C Virus Ab w/Reflex Quant NEGATIVE s/c (NEGATIVE)
== END ==
LOC: LAB 09:34
PROVIDERS: PCP Family Medicine; Referring Provider Family Medicine; Visit Provider Family Medicine
DX: Z00.00 Encounter for general adult medical examination without abnormal findings (principal); E78.5 Hyperlipidemia, unspecified; E78.2 Mixed hyperlipidemia; Z11.59 Encounter for screening for other viral diseases
CPT/HCPCS: 36415; 80053; 83721; 86803

== ENCOUNTER → 2025-11-11 | Outpatient (CLI) | payer OTHER, SELFPAY ==
--- NOTE | 2025-11-11 13:15 | DI.MG.S_ITS ---
MM diagnostic mammo BI: 11/11/2025. BI-RADS: 1 CLINICAL: 75-year old female for bilateral diagnostic mammogram. Tyrer-Cuzick lifetime risk of 2.2%. No personal or first-degree family history of breast cancer. The patient reports pain (1 month) in the left breast that has since resolved. PRIOR EXAMS 07/11/2022, 06/19/2021, 05/14/2020, 05/10/2019. MAMMOGRAPHY TECHNIQUE: 2D and 3D (tomosynthesis) digital mammographic views obtained, with additional images as needed for full coverage. Current study was also evaluated with a Computer Aided Detection (CAD) system. DENSITY B. There are scattered areas of fibroglandular density. MAMMOGRAPHY FINDINGS Bilateral: No suspicious mass, asymmetry, microcalcification, or other abnormality seen. IMPRESSION: * No evidence of malignancy. RECOMMENDATIONS Left * The patient reports that her breast pain has resolved at the time of this examination. Clinical follow-up is recommended, and further management of focal signs or symptoms should be based on the results of clinical evaluation. If a concerning symptom persists or progresses, further clinical evaluation should be considered. Bilateral * Annual screening mammography. COMMENTS: Findings and recommendations were conveyed to the patient during today's evaluation. OVERALL ASSESSMENT CATEGORY BI-RADS-1: Negative. The [employer] recommends annual screening mammography beginning at age 40 for women with average risk of breast cancer. ELECTRONICALLY SIGNED: Angela Srivastava M.D. on 11/11/2025 at 02:15:17 PM PT Interpreting Station ID: [id number]
== END ==
LOC: MAMMO 13:14
PROVIDERS: PCP Family Medicine; Referring Provider Family Medicine; Visit Provider Nurse Practitioner
DX: N63.20 Unspecified lump in the left breast, unspecified quadrant (principal); N64.4 Mastodynia
CPT/HCPCS: 77066; G0279